=== PATIENT | male | born 1940 | race Caucasian/White ===

== ENCOUNTER 2018-09-03 22:31 | Inpatient (IN) | payer OTHER ==
[~2018-09-03] VITALS: Ht 175.3 cm; Wt 124.4 kg
[2018-09-03 23:01] LABS: BASOPHILS ABSOLUTE AUTO 0.03 K/mm3 (0.00-0.23); BASOPHILS PERCENT AUTO 0 % (0-2); EOSINOPHILS ABSOLUTE AUTO 0.02 K/mm3 (0.00-0.68); EOSINOPHILS PERCENT AUTO 0 % (0-6); Hematocrit 39.8 % (37.0-53.0); Hemoglobin 12.9 g/dL (13.5-17.5); IMMATURE GRAN ABSOLUTE AUTO 0.06 K/mm3 (0.00-0.10); IMMATURE GRAN PERCENT AUTO 1 % (0-1); LYMPHOCYTES ABSOLUTE AUTO 1.07 K/mm3 (0.84-5.20); LYMPHOCYTES PERCENT AUTO 9 % (21-46); MONOCYTES ABSOLUTE AUTO 1.71 K/mm3 (0.16-1.47); MONOCYTES PERCENT AUTO 15 % (4-13); Mean Corpuscular HGB 30.9 pg (26.0-34.0); Mean Corpuscular HGB Conc 32.4 g/dL (31.5-36.5); Mean Corpuscular Volume 95 fL (80-100); Mean Platelet Volume 11.1 fL (9.1-12.4); NEUTROPHILS ABSOLUTE AUTO 8.88 K/mm3 (1.96-9.15); NEUTROPHILS PERCENT AUTO 75 % (41-73); Platelet Count 132 K/mm3 (150-400); RDW Coefficient Variation 13.9 % (11.7-14.2); RDW Standard Deviation 48.6 fL (35.1-46.3); Red Blood Cell Count 4.18 M/mm3 (4.30-5.90); White Blood Cell Count 11.77 K/mm3 (4.00-11.30)
[2018-09-03 23:11] LABS: International Normalized Ratio 1.16; Prothrombin Time Results 11.8 Sec (9.7-11.5)
[2018-09-03 23:19] LABS: Albumin, Blood 3.4 g/dL (3.4-5.0); Albumin/Globulin Ratio 0.9 (0.8-1.8); Bilirubin, Total 0.9 mg/dL (0.1-1.0); Bun/Creatinine Ratio 24.2 (12.0-20.0); Calcium, Blood 8.4 mg/dL (8.5-10.1); Creatinine, Blood 1.28 mg/dL (0.60-1.20); Globulin, Blood 3.7 g/dL (2.2-4.0); Potassium, Blood 4.4 mmol/L (3.5-5.5); Total Protein, Blood 7.1 g/dL (6.4-8.2)
[2018-09-04 01:42] LABS: Creatine Kinase MB 23.6 ng/mL (0.0-3.6); Creatine Kinase MB Index 0.3 (0.0-4.0)
--- NOTE | 2018-09-04 02:48 | NUR ---
SPOKE WITH PT'S SON AND SON'S SPOUSE. BOTH STATED LIVE OUT OF TOWN AND DON'T KNOW MUCH ABOUT PATIENT BUT WILL BRING PT'S MEDICATIONS IN THE AM.
[2018-09-04 03:08] LABS: Bilirubin, Urine Neg (Neg); Blood, Urine 5+ (Neg); Glucose Qualitative, Urine Neg (Neg); Ketones, Urine 1+ (Neg); Leukocyte Esterase, Urine 1+ (Neg); Nitrite, Urine Neg (Neg); Protein, Urine 2+ (Neg); Specific Gravity, Urine 1.015 (1.003-1.022); Urobilinogen, Urine NORM (Normal)
[2018-09-04 03:13] LABS: Appearance, Urine Clear (Clear); Color, Urine Yellow (P-Yellow)
[2018-09-04 03:14] LABS: Squamous Epithelial Cells Not Seen /hpf (Few)
[2018-09-04 03:15] LABS: Amorphous Light (0-Heavy); Bacteria Mod /hpf; Mucus Light (0-Heavy); WBC Cast 0-2 /lpf (0)
[2018-09-04 03:20] LABS: U Amphetamine Screen Not Detected; U Barbituate Screen Not Detected; U Benzodiazapine Screen Not Detected; U Buprenorphine Screen Not Detected; U Cannabinoids Screen Not Detected; U Cocaine Screen Not Detected; U Methadone Screen Not Detected; U Methamphetamine Screen Not Detected; U Opiates Screen DETECTED; U Oxycodone Screen Not Detected; U Phencyclidine Screen Not Detected; U Propoxyphene Screen Not Detected
--- NOTE | 2018-09-04 03:56 | NUR ---
TEMP PT MED WITH TYLENOL FOR TEMP 102.4
--- NOTE | 2018-09-04 05:52 | NUR ---
PT TEMPERATURE CURRENTLY 100.3 POST TYLENOL. PT SLEEPING OFF AND ON AND IS PLEASANT WHEN AWAKENED. VSS. PT FAMILY TO BRING IN PT'S MEDICATION BOTTLES FOR VERIFICATION.
[2018-09-04 06:28] LABS: Anion Gap 7 mmol/L (6-16); Blood Urea Nitrogen 24 mg/dL (8-24); Bun/Creatinine Ratio 22.2 (12.0-20.0); CO2, Blood 25 mmol/L (21-32); Calcium, Blood 7.7 mg/dL (8.5-10.1); Chloride, Blood 108 mmol/L (98-108); Creatinine, Blood 1.08 mg/dL (0.60-1.20); Glomerular Filtration Rate >60 (60-); Glucose, Blood 146 mg/dL (70-99); Potassium, Blood 3.8 mmol/L (3.5-5.5); Sodium, Blood 140 mmol/L (136-145)
--- NOTE | 2018-09-04 08:57 | NUR ---
0700: CARE ASSUMED, ASSESSMENT COMPLETED. PT A&OX4, SITTING UP IN BED, C/O SOB. LS DIMINISHED IN BASES AND [place], RUL AND RML WITH EXPIRATORY WHEEZES, LS ARE TIGHT. PT REPOSITIONED IN BED, LOOSE COUGH NOTED, PT DENIES PHLEGM PRODUCTION. NS INFUSING AT 200ML/HR PER ORDERS, SPO2 94% 1L/NC, PT REMAINS FEBRILE AT 101.2 DEGREES. 0800: MEDICATIONS TOLERATED WELL, PT SITTING UP IN BED SIPPING JUICE. LS HAVE NOT CLEARED WITH COUGHING/REPOSITIONING, RT EVAL ORDERED. 0815: RT AT BEDSIDE TO ADMINISTER NEB TX. 0840: RT REMAINS AT BEDSIDE, PT'S RR 40, SPO2 93%, O2 INCREASED TO 3L/NC. DR. MARIE AT BEDSIDE FOR EVAL. 0900: SOLUMEDROL ADMINISTERED PER ORDERS, LABS DRAWN, FABRIC PATTERN GRADER AT BEDSIDE.
[2018-09-04 10:12] LABS: BASOPHILS ABSOLUTE AUTO 0.03 K/mm3 (0.00-0.23); BASOPHILS PERCENT AUTO 0 % (0-2); EOSINOPHILS ABSOLUTE AUTO 0.01 K/mm3 (0.00-0.68); EOSINOPHILS PERCENT AUTO 0 % (0-6); Hematocrit 35.7 % (37.0-53.0); Hemoglobin 11.4 g/dL (13.5-17.5); IMMATURE GRAN ABSOLUTE AUTO 0.05 K/mm3 (0.00-0.10); IMMATURE GRAN PERCENT AUTO 0 % (0-1); LYMPHOCYTES ABSOLUTE AUTO 0.72 K/mm3 (0.84-5.20); LYMPHOCYTES PERCENT AUTO 6 % (21-46); MONOCYTES ABSOLUTE AUTO 1.51 K/mm3 (0.16-1.47); MONOCYTES PERCENT AUTO 12 % (4-13); Mean Corpuscular HGB 30.7 pg (26.0-34.0); Mean Corpuscular HGB Conc 31.9 g/dL (31.5-36.5); Mean Corpuscular Volume 96 fL (80-100); Mean Platelet Volume 11.1 fL (9.1-12.4); NEUTROPHILS ABSOLUTE AUTO 10.66 K/mm3 (1.96-9.15); NEUTROPHILS PERCENT AUTO 82 % (41-73); Platelet Count 105 K/mm3 (150-400); RDW Standard Deviation 49.5 fL (35.1-46.3); Red Blood Cell Count 3.71 M/mm3 (4.30-5.90); White Blood Cell Count 12.98 K/mm3 (4.00-11.30)
--- NOTE | 2018-09-04 11:35 | NUR ---
Echocardiogram completed.
[2018-09-04] MEDS ORDERED: Norco 10-325 T1 EACH PO (11:41)
[2018-09-04] MEDS ORDERED: TRAM50 PO (11:42)
[2018-09-04] MEDS ORDERED: METFORMIN HCL1000 MG PO (11:42)
[2018-09-04] MEDS ORDERED: DOXA4 PO (11:42)
[2018-09-04] MEDS ORDERED: AMLO10 PO (11:43)
[2018-09-04] MEDS ORDERED: ZESTRIL40 MG PO (11:43)
[2018-09-04] MEDS ORDERED: ASPI325EC PO (11:44)
[2018-09-04] MEDS ORDERED: CARV25 PO (11:44)
[2018-09-04] MEDS ORDERED: HYDCHL25 PO (11:45)
[2018-09-04] MEDS ORDERED: ATOR80 PO (11:45)
[2018-09-04 12:05] LABS: Base Excess Venous -1.5 mmol/L; Bicarbonate Venous 23.2 mmol/L (24.0-30.0); PCO2 Venous 40.3 mmHg (38-42); PO2 Venous 92.6 mmHg (38-42); pH Blood Venous 7.38 (7.34-7.37)
--- NOTE | 2018-09-04 12:09 | NUR ---
1000: PT SITTING UP IN BED, CONTINUOUS NEB TX COMPLETED, RR 26/MIN, NO WHEEZING NOTED, SPO2 93% 2L/NC/ PT STATES HE IS FEELING BETTER, COLOR HAS IMPROVED, PT NO LONGER WORKING SO HARD TO BREATHE. PT DENIES NEEDS AT THIS TIME. 1100: PT MEDICATED FOR CBG, FEVER, AND PAIN, TO CT AT THIS TIME. TOLERATED TRANSFER FROM BED TO [place] GURNEY WELL WITH MAX ASSIST. 1200: PT SITTING IN BED, RESPIRATIONS REMAIN EVEN AND UNLABORED, SPO2 98% 2L/NC, RR 22/MIN PT EATING LUNCH AND VISITING WITH FAMILY. NO DISTRESS NOTED AT THIS TIME.
--- NOTE | 2018-09-04 18:15 | NUR ---
1400: PT C/O BLAT LEGS FEELING "TIRED," OFFERED TO REPOSITION LEGS, PT REFUSES, ASKS FOR ICE PACKS. ICE PLACED ON BILAT LOWER LEGS, PT REPOSITIONED, STATES HE IS GOING TO TAKE A NAP. 1600: PT HAS BEEN NAPPING SOUNDLY, VSS, RR 20'S, SPO2 MID 90'S. PT NOW AWAKE WITH FAMILY AT BEDSIDE, AUDIBLE WHEEZES NOTED, PT REPORTS INCREASED SOB. LS WITH WHEEZES IN RUL AND RML, DIMINISHED IN ALL OTHER LOBES, RR 30'S. RT TO ADMINISTER NEB. 1700: LS HAVE CLEARED AFTER NEB TREATMENT, PT DENIES NEEDS AT THIS TIME. 1815: PT ATE 60% OF DINNER WITHOUT ANY NOTED COUGHING OR CHOKING, IS ALERT AND ORIENTED X4, DENIES NEEDS OR C/O AT THIS TIME. VSS, SPO2 97% ON 2L, LS REMAIN CLEAR, PT DENIES SOB OR CHEST PAIN. NS INFUSING AT 150ML/HR PER ORDERS, REPORT TO ONCOMING SHIFT.
--- NOTE | 2018-09-04 19:50 | NUR ---
PT CONTINUES TO SLEEP. VSS. PT RECEIVED BREATHING TX VIA RT THIS HOUR. PT APPEARS COMFORTABLE AND IN NO DISTRESS. NO AUDIBLE WHEEZING NOTED.
--- NOTE | 2018-09-05 00:10 | NUR ---
PT REMAINS AWAKE. REQUESTED TV ON. PT CURRENTLY WATCHING TV. CALL LIGHT WITHIN REACH.
--- NOTE | 2018-09-05 01:45 | NUR ---
0130 THIS RN TO PT BEDSIDE. PT REQUEST TV TO BE TURNED OFF. PT REPOSITIONED SLIGHTLY PER PT. CALL LIGHT WITHIN REACH. LAYAY PT SLEEPING.
[2018-09-05 03:38] LABS: BASOPHILS ABSOLUTE AUTO 0.01 K/mm3 (0.00-0.23); BASOPHILS PERCENT AUTO 0 % (0-2); EOSINOPHILS PERCENT AUTO 0 % (0-6); Hematocrit 34.4 % (37.0-53.0); Hemoglobin 10.9 g/dL (13.5-17.5); IMMATURE GRAN ABSOLUTE AUTO 0.03 K/mm3 (0.00-0.10); IMMATURE GRAN PERCENT AUTO 0 % (0-1); LYMPHOCYTES ABSOLUTE AUTO 0.66 K/mm3 (0.84-5.20); LYMPHOCYTES PERCENT AUTO 7 % (21-46); MONOCYTES ABSOLUTE AUTO 0.52 K/mm3 (0.16-1.47); MONOCYTES PERCENT AUTO 5 % (4-13); Mean Corpuscular HGB 30.6 pg (26.0-34.0); Mean Corpuscular HGB Conc 31.7 g/dL (31.5-36.5); Mean Corpuscular Volume 97 fL (80-100); Mean Platelet Volume 11.4 fL (9.1-12.4); NEUTROPHILS PERCENT AUTO 88 % (41-73); Platelet Count 120 K/mm3 (150-400); RDW Coefficient Variation 13.5 % (11.7-14.2); RDW Standard Deviation 48.7 fL (35.1-46.3); Red Blood Cell Count 3.56 M/mm3 (4.30-5.90); White Blood Cell Count 9.72 K/mm3 (4.00-11.30)
[2018-09-05 03:54] LABS: Anion Gap 5 mmol/L (6-16); Blood Urea Nitrogen 28 mg/dL (8-24); Bun/Creatinine Ratio 27.5 (12.0-20.0); CO2, Blood 25 mmol/L (21-32); Calcium, Blood 7.4 mg/dL (8.5-10.1); Chloride, Blood 110 mmol/L (98-108); Creatinine, Blood 1.02 mg/dL (0.60-1.20); Glomerular Filtration Rate >60 (60-); Glucose, Blood 295 mg/dL (70-99); Potassium, Blood 4.6 mmol/L (3.5-5.5); Sodium, Blood 140 mmol/L (136-145)
--- NOTE | 2018-09-05 06:43 | NUR ---
PT AWAKE, A+O X4 WATCHING TV. CALL LIGHT WITHIN REACH.
--- NOTE | 2018-09-05 10:47 | NUR ---
0745: CARE ASSUMED, PT JUST FINISHED NEB TREATMENT. ASSESSMENT COMPLETED, LS CLEAR, DIM IN BASES. HRR, VSS, PT DENIES PAIN OR C/O AT THIS TIME. PT SITTING UP IN BED, NS 150ML/HR PER ORDERS, FEET ELEVATED. PT ALERT AND ORIENTED X4, PLEASANT AND COOPERATIVE WITH CARE. MARKS PATENT AND DRAINING, URINE CLEAR TODAY. BREAKFAST TRAY GIVEN, PT DENIES OTHER NEEDS AT THIS TIME. RR 24, SPO2 94% ON 2L/NC, RESPIRATIONS EVEN AND UNLABORED. 0900: PT TOLERATED BREAKFAST AND PO MEDICATIONS WELL, STATES HE WOULD LIKE TO CONTINUE SITTING UP, DENIES OTHER NEEDS. 1000: PT REPORTS HE FEELS LIKE HAVING A BM, BEDPAN PLACED. NO RESULTS, CATH AND RAMO CARE PROVIDED. PT REPOSITIONED ONTO LEFT SIDE, STATES HE IS COMFORTABLE. PT BECOMES MODERATELY SOB WITH ACTIVITY, RECOVERS QUICKLY, SPO2 REMAINS 93-94% DURING EXERTION IN BED.
--- NOTE | 2018-09-05 12:14 | NUR ---
1200: PT UP AT BEDSIDE WITH PT/OT, TIRES AND BECOMES SOB EASILY. PT ASSISTED BACK TO BED, REPOSITIONED, OXYGEN INCREASED TO 4L MOMENTARILY FOR COMFORT. WITH REST, PT CALMS AND SOB DISSPIATES. OXYGEN BACK TO 2L/NC. PT NOW SITTING UP IN BED EATING LUNCH, FAMILY AT BEDSIDE. PT TALKING IN FULL SENTENCES WITHOUT DIFFICULTY.
--- NOTE | 2018-09-05 16:17 | NUR ---
1420: PT SITTING UP IN BED WATCHING FOOTBALL, REPORTS HEADACHE AND BACK PAIN 6/10, MEDICATED WITH PERCOCET PER ORDERS. PT DENIES OTHER NEEDS. 1445: SMALL BM IN BEDPAN, PT REPOSITIONED. 1600: BEDBATH AND CATH CARE COMPLETED, PT REPOSITIONED IN BED, DENIES C/O. DRESSING TO LEFT AC IV LOOSE, CHANGED, IV SITE WITHOUT S/SX INFECTION. RT AT BEDSIDE TO [facility] JOSE G NIXON.
--- NOTE | 2018-09-05 18:43 | NUR ---
1800: PT SAT UP IN BED FOR DINNER, DENES NEEDS OR C/O AT THIS TIME. RESPIRATIONS EVEN AND UNLABORED, RR 24, SPO2 MID 90'S, HR 60'S, BP STABLE. PT DENIES NEEDS AT THIS TIME, IS EATING AND WATCHING TV. DR. MARIE NOTIFIED OF 24 HOUR INTAKE AND OUTPUT. 1845: PT ATE DINNER WITHOUT DIFFICULTY, NS DECREASED TO 50ML/HR PER ORDERS. PT REMAINS SITTING UP IN BED, DENIES NEEDS. VSS, RESPIRATIONS EVEN AND UNLABORED. REPORT TO ONCOMING NURSE.
--- NOTE | 2018-09-05 19:15 | NUR ---
ASSUMED PT CARE PT SITTING UPRIGHT IN BED SLEEPING WITH CALL LIGHT AND BEDSIDE TABLE IN REACH. NS INFUSING AT 50MLS/HR. OXYGEN AT 2L VIA NC WITH OXYGEN SATURATIONS >95%. PT APPEARS COMFORTABLE AT THIS TIME.
[2018-09-06 03:49] LABS: BASOPHILS ABSOLUTE AUTO 0.01 K/mm3 (0.00-0.23); BASOPHILS PERCENT AUTO 0 % (0-2); EOSINOPHILS PERCENT AUTO 0 % (0-6); Hematocrit 35.3 % (37.0-53.0); Hemoglobin 11.1 g/dL (13.5-17.5); IMMATURE GRAN ABSOLUTE AUTO 0.12 K/mm3 (0.00-0.10); IMMATURE GRAN PERCENT AUTO 1 % (0-1); LYMPHOCYTES ABSOLUTE AUTO 0.67 K/mm3 (0.84-5.20); LYMPHOCYTES PERCENT AUTO 6 % (21-46); MONOCYTES ABSOLUTE AUTO 0.63 K/mm3 (0.16-1.47); MONOCYTES PERCENT AUTO 6 % (4-13); Mean Corpuscular HGB 30.2 pg (26.0-34.0); Mean Corpuscular HGB Conc 31.4 g/dL (31.5-36.5); Mean Corpuscular Volume 96 fL (80-100); Mean Platelet Volume 11.6 fL (9.1-12.4); NEUTROPHILS ABSOLUTE AUTO 9.84 K/mm3 (1.96-9.15); NEUTROPHILS PERCENT AUTO 87 % (41-73); Platelet Count 152 K/mm3 (150-400); RDW Coefficient Variation 13.7 % (11.7-14.2); RDW Standard Deviation 48.4 fL (35.1-46.3); Red Blood Cell Count 3.68 M/mm3 (4.30-5.90); White Blood Cell Count 11.27 K/mm3 (4.00-11.30)
[2018-09-06 04:12] LABS: Anion Gap 6 mmol/L (6-16); Blood Urea Nitrogen 29 mg/dL (8-24); Bun/Creatinine Ratio 27.6 (12.0-20.0); CO2, Blood 25 mmol/L (21-32); Calcium, Blood 7.6 mg/dL (8.5-10.1); Chloride, Blood 111 mmol/L (98-108); Creatinine, Blood 1.05 mg/dL (0.60-1.20); Glomerular Filtration Rate >60 (60-); Glucose, Blood 357 mg/dL (70-99); Potassium, Blood 4.9 mmol/L (3.5-5.5); Sodium, Blood 142 mmol/L (136-145)
[2018-09-06 04:24] LABS: CPK Creatine Kinase 1316 U/L (39-308)
--- NOTE | 2018-09-06 05:12 | NUR ---
END OF SHIFT SUMMARY PT HAS BEEN PLEASANT AND COOPERATIVE WITH CARE T/O SHIFT. C/O MODERATE BACK PAIN AND REQUESTED PRN PERCOCET, WHICH APPEARED EFFECTIVE PT FELL ASLEEP AT 90 DEGREES. PT OFFERED REPOSITIONING FREQUENTLY, BUT DECLINED AND STATED HE WAS COMFORTABLE D/T EASIER WORK OF BREATHING SITTING UPRIGHT. PT'S LUNGS HAVE BEEN CLEAR TO BILATERAL UPPER LOBES WITH COARSE RHONCHI NOTED AT TIMES THAT IS CLEARED WITH COUGH; DIMINISHED TO BILATERAL LOWER LOBES. UNABLE TO COUGH UP ANY SPUTUM, BUT DOES STATE THAT IT IS A PRODUCTIVE COUGH. SBP ELEVATED >160 TOWARD END OF SHIFT; PT ALSO SOUNDED WHEEZY AT THAT TIME AND ASKED IF HE WAS ANXIOUS OR WAS SOB; PT DENIED BOTH, BUT STATED HE WAS A 6/10 PAIN AND REQUESTED PRN PERCOCET. RT ADMINISTERED PRN NEB TX D/T AUDIBLE WHEEZING. PT HAS REMAINED ON 2L O2 VIA NC WITH OXYGEN SATURATIONS MAINTAINING >91%. PT APPEARS COMFORTABLE AT THIS TIME WITH NO SIGNS OF ACUTE DISTRESS NOTED.
--- NOTE | 2018-09-06 05:43 | NUR ---
CXR PT TAKEN TO XRAY WITH TECH AND TELE BOX
--- NOTE | 2018-09-06 07:30 | NUR ---
ASSUMED CARE ASSUMED CARE OF PATIENT. PATIENT AWAKE AND ALERT. CURRENTLY RECEIVING A BREATHING TREATMENT. PATIENT [place]. PATIENT VERBALIZING FRUSTRATION THAT HE IS HAVING TROUBLES WITH GETTING AROUND AND REMEMBERING STUFF. PATIENT DISCUSSED THAT HE WAS FRUSTRATED THAT HE WAS TOO WEAK TO GET HIMSELF UP OFF THE FLOOR WHEN HE FELL AT HOME. PATIENT EASILY SOB WITH ANY EXCERSION INCLUDING WASHING HIS FACE. PATIENT STATES THAT HE IS BREATHING MUCH BETTER TODAY COMPARED TO HOW HE HAS BEEN AT HOME. STATES THAT WHEN HE MOVED HERE, HE HAD A CPAP MACHINE BUT DID NOT BRING IT WITH HIM. PLAN TO ENCOURAGE MOBILIZING. WILL CONTINUE TO MONITOR RESPITORY STATUS AND TITRATE FIO2 ABLE. PATIENT DOES NOT USE O2 AT HOME. WILL NOTIFY PHYSICIANS OF ANY CHANGES.
--- NOTE | 2018-09-06 14:31 | NUR ---
PATIENT WORKED WITH OT. PATIENT ABLE TO REPOSITION AND STAND AT BEDSIDE. PATIENT EASILY SOB WITH ANY EXCERTION. CONTINUE TO REINFORCE WITH PATIENT THE IMPORTANCE OF PURSED LIP BREATHING. FAMILY AT BEDSIDE
--- NOTE | 2018-09-06 18:35 | NUR ---
SUMMARY PATIENT CONTINUES TO BE EASILY SOB WITH EXCERTION. UP TO COMMODE WITH MINIMAL ASSISTANCE AND VERBAL COACHING. PATIENT WORKED WITH PT AND AMBULATED SHORT DISTANCE IN ROOM. CONTINUE TO REMIND PATIENT TO DO PURSED LIP BREATHING. PATIENT BATHED AND SHAVED EARLIER. SKIN CARE DONE AFTER BATH, REMOVED SCALY SKIN FROM FEET AND LEGS. WILL GIVE REPORT TO ONCOMING SHIFT WHEN AVAILABLE. MARKS DRAINING YELLOW URINE WITH GOOD RESPONSE TO LASIX.
[2018-09-07 03:43] LABS: BASOPHILS ABSOLUTE AUTO 0.01 K/mm3 (0.00-0.23); BASOPHILS PERCENT AUTO 0 % (0-2); EOSINOPHILS PERCENT AUTO 0 % (0-6); Hemoglobin 11.4 g/dL (13.5-17.5); IMMATURE GRAN ABSOLUTE AUTO 0.11 K/mm3 (0.00-0.10); IMMATURE GRAN PERCENT AUTO 1 % (0-1); LYMPHOCYTES ABSOLUTE AUTO 0.75 K/mm3 (0.84-5.20); LYMPHOCYTES PERCENT AUTO 7 % (21-46); MONOCYTES PERCENT AUTO 7 % (4-13); Mean Corpuscular HGB 30.5 pg (26.0-34.0); Mean Corpuscular HGB Conc 32.6 g/dL (31.5-36.5); Mean Corpuscular Volume 94 fL (80-100); Mean Platelet Volume 11.5 fL (9.1-12.4); NEUTROPHILS ABSOLUTE AUTO 8.87 K/mm3 (1.96-9.15); NEUTROPHILS PERCENT AUTO 85 % (41-73); Platelet Count 167 K/mm3 (150-400); RDW Coefficient Variation 13.5 % (11.7-14.2); RDW Standard Deviation 46.6 fL (35.1-46.3); Red Blood Cell Count 3.74 M/mm3 (4.30-5.90); White Blood Cell Count 10.44 K/mm3 (4.00-11.30)
[2018-09-07 03:58] LABS: Anion Gap 7 mmol/L (6-16); Blood Urea Nitrogen 33 mg/dL (8-24); Bun/Creatinine Ratio 31.7 (12.0-20.0); CO2, Blood 28 mmol/L (21-32); Calcium, Blood 8.1 mg/dL (8.5-10.1); Chloride, Blood 108 mmol/L (98-108); Creatinine, Blood 1.04 mg/dL (0.60-1.20); Glomerular Filtration Rate >60 (60-); Glucose, Blood 284 mg/dL (70-99); Potassium, Blood 4.4 mmol/L (3.5-5.5); Sodium, Blood 143 mmol/L (136-145)
--- NOTE | 2018-09-07 07:45 | NUR ---
AM ASSESSMENT: PT IS ALERT AND ORIENTED X3. [place] WITH NO HEARING AIDS. PLEASANT AND COOPERATIVE WITH CARE. PT ANSWERS SLOWLY BUT APPROPRIATELY. LUNGS DIMINISHED WITH EXPIRATORY WHEEZES HEARD T/O BILATERALLY. SATS >90% ON RA. PT DOES GET DYSPNEIC WITH EXERTION AND NEEDS CONTINUED EDUCATION ON PURSED LIPPED BREATHING. HR REGULAR, SR WITH BBB-60'S RANGE. ABD LARGE/ROUND/NON-TENDER. BT'S ACTIVE X4 QUADS.
--- NOTE | 2018-09-07 07:58 | NUR ---
HS CBG = 457, COVERED W/ 18 UNITS HUMALOG INSULIN, REPORTED TO DR REILLY. REPEAT AT 2330 = 382. DISCUSSED W/ DR HASSAN, ADDITIONAL NON-SCHEDUAL DOSE 15 UNITS HUMALOG GIVEN. 0300 LAB GLUCOSE CON'T REDUCED, 284. COREG 25 MG, CARDURA 4 MG RESTARTED AT HS, SMALL TRANSIENT DECREASE SBP. ADDITIONAL HOME MEDS TO START IN AM.
--- NOTE | 2018-09-07 10:07 | NUR ---
PRINCESS FROM HOME, HEALTH, AND HOSPICE HERE TO SPEAK WITH PT ABOUT DISCHARGE PLANNING. PT DECLINED GOING TO A SNF, HE DOES NOT WANT TO LEAVE HIS HOME ALONE. ONE SON LIVES IN [place] AND THE OTHER IS A PARAP[employer]IC. PRINCESS WILL RETURN WITH [employer] FOR PT TO FILL OUT FOR PT TO RECEIVE HOME HEALTH POST DISCHARGE.
--- NOTE | 2018-09-07 10:12 | NUR ---
DR BROWN HERE TO ASSESS PT. SEE NEW ORDERS.
--- NOTE | 2018-09-07 11:30 | NUR ---
D/C'D PT'S MARKS CATH. URINAL AND BSC PLACED AT BEDSIDE. CALL LIGHT WITHIN REACH SO PT CAN CALL FOR ASSIST PRN.
--- NOTE | 2018-09-07 11:48 | NUR ---
CALLED IN RX'S AND LEFT MESSAGE AT PT'S PHARMACY AT [facility] IN [place]. DISCUSSED HOME 02 EVALUATION WITH RT RICHY. SHE WILL DO EVALUATION WHEN AVAILABLE.
--- NOTE | 2018-09-07 12:56 | NUR ---
RICHY, RT HERE TO DO HOME 02 EVALUATION. SEE RT NOTES FOR EVAL.
--- NOTE | 2018-09-07 13:06 | NUR ---
CALLED PT'S (QUENTIN) TO ASK IF THERE WAS ANY FAMILY THAT COULD TRANSPORT THE PT HOME PRIOR TO SETTING UP TRANSPORT. QUENTIN IS TO CALL THIS RN BACK ONCE HER DAUGHTER GETS THERE FROM [employer].
--- NOTE | 2018-09-07 13:58 | NUR ---
SPOKE WITH PT'S SON (TIA) WHOM IS CONCERNED ABOUT THE PT BEING RELEASED TODAY, THEY ARE CONCERNED ABOUT HIM BEING ABLE TO CARE FOR HIMSELF AND HIS AT HOME. EDUCATED FAMILY THAT HOME HEALTH RN IS ORDERED, BUT WON'T BE IN TO ASSESS PT UNTIL TOMORROW. ALSO, DISCUSSED HOME ASSISTIVE DEVICES THAT WERE ORDERED WELL. SON TO TALK WITH PT ABOUT HIS CONCERNS ONCE PT IS DONE ON THE BSC.
[2018-09-07] MEDS ORDERED: ALBU2.5V5 INH (14:03)
[2018-09-07] MEDS ORDERED: AMOCLA500 PO (14:04)
[2018-09-07] MEDS ORDERED: DOCU100 PO (14:11)
[2018-09-07] MEDS ORDERED: INSULANPEN SC (14:13)
[2018-09-07] MEDS ORDERED: Humalog Mi100 UNIT/4 SC (14:13)
[2018-09-07] MEDS ORDERED: PRED20 PO (14:15)
[2018-09-07] MEDS ORDERED: MIRALAX17 GM PO (14:16)
--- NOTE | 2018-09-07 14:35 | NUR ---
SPOKE WITH TIA AGAIN AND HE VOICED CONCERNS OF THE PT BEING RELEASED HOME TODAY. CALLED DR RITTER WHOM REPORTS WE CAN KEEP PT ONE MORE NIGHT AND WILL DISCHARGE HIM HOME TOMORROW.
--- NOTE | 2018-09-07 16:01 | NUR ---
PT UPDATE: PT ADAMENT THAT HE BE RELEASED FROM THE HOSPITAL AND FEELS HE "IS SAFE" TO GO HOME TODAY. REPORTS HE FEELS LIKE HE CAN GET UP HIS THREE STEPS LEADING INTO HIS HOME. PT'S HERE AND TRIED TO CONVINCE PT TO STAY ONE MORE NIGHT IN THE HOSPITAL UNTIL HOME HEALTH RN CAN MAKE IT OUT TOMORROW AND THERE THE FACILITIES ARE OPEN FOR HIM TO GET HIS MEDICAL EQUIPMENT NEEDED. PRINCESS HERE TO GIVE THE PT AND PT'S /FAMILY RESOURCES (SEE HER NOTE). \\ CALLED AND SPOKE WITH DR RITTER WHOM IS CLEARING PT FOR DISCHARGE.
[2018-09-07] MEDS ORDERED: Percocet 5-3251 EACH PO ×2 (16:21→16:22)
--- NOTE | 2018-09-07 17:44 | NUR ---
DISCHARGE NOTE: FAMILY REMAINS CONCERNED ABOUT PT BEING ABLE TO GET UP STEPS AT HOME. PT INSISTS HE WILL BE GOING HOME AND IF HIS FAMILY DOES NOT PROVIDE A RIDE HOME, THAT HE WILL FIND HIS OWN RIDE HOME. PT TAKEN TO THE PHYSICAL THERAPY STAIRS AND PT WAS ABLE TO WALK UP AND DOWN THE THERAPY STEPS ON BOTH SIDES. FAMILY ADVISED TO CALL THE FIRE DEPT IF HE IS UNABLE TO GET UP THE STEPS. ALSO RECOMMENDED THEY CONSULT WITH [employer] TO USES THEIR STAIR CHAIR, HOWEVER, PT DECLINED R/T THE COST. PT'S QUENTIN GIVEN WRITTEN AND VERBAL DISCHARGE INSTRUCTIONS F/Raheel, NEW MEDICATIONS . ALL MEDICATIONS CALLED INTO [facility], EXCEPT SCRIPT FOR OXYCODONE AND SCRIPT FOR FWW, W/C, BSC GIVEN TO PT. PT ASSISTED WITH DRESSING AND THIS RN ESCORTED PT BY W/C OUT TO HIS CAR. ALL PERSONAL BELONGINGS SENT HOME WITH PT.
== END 2018-09-07 16:47 | disposition home or self-care (01) | DRG 871 ==
LOC: ER 22:31 → ICUW 22:32 → ER 09-04 02:22 → ICUE 09-04 02:25
PROVIDERS: Emergency Medicine; Internal Medicine; ADMIT Hospitalist
DX: A41.9 Sepsis, unspecified organism (principal); J96.01 Acute respiratory failure with hypoxia; N39.0 Urinary tract infection, site not specified; M62.82 Rhabdomyolysis; N17.9 Acute kidney failure, unspecified; Z68.41 Body mass index [BMI] 40.0-44.9, adult; E11.9 Type 2 diabetes mellitus without complications; Z77.22 Contact with and (suspected) exposure to environmental tobacco smoke (acute) (chronic); E66.01 Morbid (severe) obesity due to excess calories; I25.10 Atherosclerotic heart disease of native coronary artery without angina pectoris; E86.0 Dehydration
CPT/HCPCS: 36415; 51702; 70450; 71046; 72131; 80048; 80053; 81001; 82550; 82553; 82803; 82947; 83605; 83880; 84145; 84484; 85025; 85379; 85610; 87040; 87077; 87086; 87186; 93005; 93010; 93306; 94640; 94644; 94761; 96360; 96361; 96372; 97110; 97116; 97163; 97167; 97530; 99285-25; G0378; G8978; G8979; G8987; G8988; J0696; J1644; J1940; J2930; J3010; J7030

== ENCOUNTER 2018-09-10 15:16 | Emergency (ER) | payer OTHER ==
[~2018-09-10] VITALS: Ht 175.3 cm; Wt 125.2 kg
[~2018-09-10 15:16] MED LIST: ALBU2.5V5 INH; AMLO10 PO; AMOCLA500 PO; ASPI325EC PO; ATOR80 PO; CARV25 PO; DOCU100 PO; DOXA4 PO; HYDCHL25 PO; Humalog Mi100 UNIT/4 SC; INSULANPEN SC; METFORMIN HCL1000 MG PO; MIRALAX17 GM PO; Norco 10-325 T1 EACH PO; PRED20 PO; Percocet 5-3251 EACH PO; TRAM50 PO; ZESTRIL40 MG PO
[2018-09-10 16:29] LABS: BASOPHILS ABSOLUTE AUTO 0.02 K/mm3 (0.00-0.23); BASOPHILS PERCENT AUTO 0 % (0-2); EOSINOPHILS ABSOLUTE AUTO 0.05 K/mm3 (0.00-0.68); EOSINOPHILS PERCENT AUTO 0 % (0-6); Hematocrit 39.4 % (37.0-53.0); Hemoglobin 12.6 g/dL (13.5-17.5); IMMATURE GRAN ABSOLUTE AUTO 0.16 K/mm3 (0.00-0.10); IMMATURE GRAN PERCENT AUTO 1 % (0-1); LYMPHOCYTES ABSOLUTE AUTO 0.93 K/mm3 (0.84-5.20); LYMPHOCYTES PERCENT AUTO 7 % (21-46); MONOCYTES ABSOLUTE AUTO 0.67 K/mm3 (0.16-1.47); MONOCYTES PERCENT AUTO 5 % (4-13); Mean Corpuscular HGB 30.6 pg (26.0-34.0); Mean Corpuscular Volume 96 fL (80-100); Mean Platelet Volume 11.6 fL (9.1-12.4); NEUTROPHILS ABSOLUTE AUTO 11.19 K/mm3 (1.96-9.15); NEUTROPHILS PERCENT AUTO 86 % (41-73); Platelet Count 171 K/mm3 (150-400); RDW Coefficient Variation 13.9 % (11.7-14.2); RDW Standard Deviation 48.8 fL (35.1-46.3); Red Blood Cell Count 4.12 M/mm3 (4.30-5.90); White Blood Cell Count 13.02 K/mm3 (4.00-11.30)
[2018-09-10 16:45] LABS: Magnesium, Blood 1.9 mg/dL (1.6-2.4)
[2018-09-10 16:46] LABS: Alanine Aminotransfer (ALT/SGP 59 U/L (12-78); Albumin, Blood 2.6 g/dL (3.4-5.0); Albumin/Globulin Ratio 0.7 (0.8-1.8); Alk Phos 60 U/L (50-136); Anion Gap 6 mmol/L (6-16); Aspartate Aminotrans (AST/SGOT 23 U/L (12-37); Blood Urea Nitrogen 23 mg/dL (8-24); Bun/Creatinine Ratio 20.5 (12.0-20.0); CO2, Blood 31 mmol/L (21-32); Calcium, Blood 8.9 mg/dL (8.5-10.1); Chloride, Blood 105 mmol/L (98-108); Creatinine, Blood 1.12 mg/dL (0.60-1.20); Globulin, Blood 3.9 g/dL (2.2-4.0); Glomerular Filtration Rate >60 (60-); Glucose, Blood 65 mg/dL (70-99); Potassium, Blood 4.2 mmol/L (3.5-5.5); Sodium, Blood 142 mmol/L (136-145); Total Protein, Blood 6.5 g/dL (6.4-8.2); Troponin I <0.015 ng/mL (0.000-0.040)
== END 2018-09-10 19:25 | disposition home or self-care (01) ==
LOC: ER 15:16
PROVIDERS: Emergency Medicine
DX: R42 Dizziness and giddiness (principal); R29.6 Repeated falls; E11.9 Type 2 diabetes mellitus without complications; I10 Essential (primary) hypertension; E78.5 Hyperlipidemia, unspecified; E66.01 Morbid (severe) obesity due to excess calories; Z95.1 Presence of aortocoronary bypass graft; Z87.891 Personal history of nicotine dependence
CPT/HCPCS: 36415; 80053; 82550; 82947; 83735; 84484; 85025; 93005; 93010; 96360; 99284-25; J7030

== ENCOUNTER 2018-12-24 10:34 | Emergency (ER) | payer OTHER ==
[~2018-12-24] VITALS: Ht 175.3 cm; Wt 109.8 kg
[2018-12-24 11:23] LABS: BASOPHILS ABSOLUTE AUTO 0.05 K/mm3 (0.00-0.23); BASOPHILS PERCENT AUTO 0 % (0-2); EOSINOPHILS ABSOLUTE AUTO 0.15 K/mm3 (0.00-0.68); EOSINOPHILS PERCENT AUTO 1 % (0-6); Hematocrit 35.7 % (37.0-53.0); Hemoglobin 10.9 g/dL (13.5-17.5); IMMATURE GRAN ABSOLUTE AUTO 0.08 K/mm3 (0.00-0.10); IMMATURE GRAN PERCENT AUTO 1 % (0-1); LYMPHOCYTES ABSOLUTE AUTO 1.22 K/mm3 (0.84-5.20); LYMPHOCYTES PERCENT AUTO 9 % (21-46); MONOCYTES ABSOLUTE AUTO 0.99 K/mm3 (0.16-1.47); MONOCYTES PERCENT AUTO 8 % (4-13); Mean Corpuscular HGB 27.9 pg (26.0-34.0); Mean Corpuscular HGB Conc 30.5 g/dL (31.5-36.5); Mean Platelet Volume 11.3 fL (9.1-12.4); NEUTROPHILS ABSOLUTE AUTO 10.45 K/mm3 (1.96-9.15); NEUTROPHILS PERCENT AUTO 81 % (41-73); Platelet Count 224 K/mm3 (150-400); RDW Coefficient Variation 15.2 % (11.7-14.2); RDW Standard Deviation 50.4 fL (35.1-46.3); Red Blood Cell Count 3.91 M/mm3 (4.30-5.90); White Blood Cell Count 12.94 K/mm3 (4.00-11.30)
[2018-12-24 11:25] LABS: Mean Corpuscular Volume 91 fL (80-100)
[2018-12-24 11:37] LABS: Albumin, Blood 2.6 g/dL (3.4-5.0); Albumin/Globulin Ratio 0.6 (0.8-1.8); Bilirubin, Total 0.4 mg/dL (0.1-1.0); Bun/Creatinine Ratio 23.9 (12.0-20.0); Calcium, Blood 8.7 mg/dL (8.5-10.1); Creatinine, Blood 1.63 mg/dL (0.60-1.20); Globulin, Blood 4.1 g/dL (2.2-4.0); Potassium, Blood 5.3 mmol/L (3.5-5.5); Total Protein, Blood 6.7 g/dL (6.4-8.2)
[2018-12-24 14:14] LABS: Adenovirus F 40/41 Not Detected (NOT DETECT); Astrovirus Not Detected (NOT DETECT); Campylobacter Sp Not Detected (NOT DETECT); Cryptosporidium Not Detected (NOT DETECT); Cyclospora Cayetanensis Not Detected (NOT DETECT); E. Coli O157 Not Detected (NOT DETECT); Entamoeba Histolytica Not Detected (NOT DETECT); Enteroaggregative E. coli-EAEC Not Detected (NOT DETECT); Enteropathogenic E. coli-EPEC Not Detected (NOT DETECT); Enterotoxigenic E. coli-ETEC Not Detected (NOT DETECT); Giardia Lamblia Not Detected (NOT DETECT); Norovirus GI/GII Not Detected (NOT DETECT); Plesiomonas Shigelloides Not Detected (NOT DETECT); Rotavirus A Not Detected (NOT DETECT); Salmonella Sp Not Detected (NOT DETECT); Sapovirus Not Detected (NOT DETECT); Shiga Toxin-prod E. coli-STEC Not Detected (NOT DETECT); Shigella/Enteroin E. coli-EIEC Not Detected (NOT DETECT); Vibrio Cholerae Not Detected (NOT DETECT); Vibrio Sp Not Detected (NOT DETECT); Yersinia Enterocolitica Not Detected (NOT DETECT)
[2018-12-24] MEDS ORDERED: VANCOCIN HCL125 MG PO (14:18)
== END 2018-12-24 14:40 | disposition home or self-care (01) ==
LOC: ER 10:34
PROVIDERS: Emergency Medicine
DX: A04.72 Enterocolitis due to Clostridium difficile, not specified as recurrent (principal); Z79.84 Long term (current) use of oral hypoglycemic drugs; Z79.899 Other long term (current) drug therapy; Z79.82 Long term (current) use of aspirin; Z79.52 Long term (current) use of systemic steroids; I10 Essential (primary) hypertension; E11.9 Type 2 diabetes mellitus without complications
CPT/HCPCS: 80053; 83690; 85025; 87324; 87507; 93005; 93010; 96360; 99284-25; J7030

== ENCOUNTER → 2019-01-07 | Outpatient (CLI) | payer OTHER ==
[~2019-01-07] MED LIST changes: +VANCOCIN HCL125 MG PO
== END | disposition home or self-care (01) ==
LOC: LAB 18:36 → LAB SHORT 18:36
DX: N39.0 Urinary tract infection, site not specified (principal)
CPT/HCPCS: 87086

== ENCOUNTER → 2019-01-13 | Outpatient (CLI) | payer OTHER ==
[2019-01-13 18:06] LABS: BASOPHILS ABSOLUTE AUTO 0.05 K/mm3 (0.00-0.23); BASOPHILS PERCENT AUTO 1 % (0-2); EOSINOPHILS ABSOLUTE AUTO 0.12 K/mm3 (0.00-0.68); EOSINOPHILS PERCENT AUTO 1 % (0-6); Hematocrit 36.4 % (37.0-53.0); Hemoglobin 11.2 g/dL (13.5-17.5); IMMATURE GRAN ABSOLUTE AUTO 0.03 K/mm3 (0.00-0.10); IMMATURE GRAN PERCENT AUTO 0 % (0-1); LYMPHOCYTES ABSOLUTE AUTO 1.33 K/mm3 (0.84-5.20); LYMPHOCYTES PERCENT AUTO 15 % (21-46); MONOCYTES ABSOLUTE AUTO 0.99 K/mm3 (0.16-1.47); MONOCYTES PERCENT AUTO 11 % (4-13); Mean Corpuscular HGB 27.7 pg (26.0-34.0); Mean Corpuscular HGB Conc 30.8 g/dL (31.5-36.5); Mean Corpuscular Volume 90 fL (80-100); Mean Platelet Volume 11.5 fL (9.1-12.4); NEUTROPHILS ABSOLUTE AUTO 6.16 K/mm3 (1.96-9.15); NEUTROPHILS PERCENT AUTO 71 % (41-73); Platelet Count 253 K/mm3 (150-400); RDW Coefficient Variation 15.3 % (11.7-14.2); RDW Standard Deviation 50.6 fL (35.1-46.3); Red Blood Cell Count 4.05 M/mm3 (4.30-5.90); White Blood Cell Count 8.68 K/mm3 (4.00-11.30)
[2019-01-13 19:05] LABS: Alanine Aminotransfer (ALT/SGP 15 U/L (12-78); Albumin, Blood 3.1 g/dL (3.4-5.0); Albumin/Globulin Ratio 0.8 (0.8-1.8); Alk Phos 66 U/L (50-136); Anion Gap 5 mmol/L (6-16); Aspartate Aminotrans (AST/SGOT 13 U/L (12-37); Bilirubin, Total 0.7 mg/dL (0.1-1.0); Blood Urea Nitrogen 10 mg/dL (8-24); Bun/Creatinine Ratio 11.4 (12.0-20.0); CO2, Blood 25 mmol/L (21-32); Calcium, Blood 8.7 mg/dL (8.5-10.1); Chloride, Blood 109 mmol/L (98-108); Creatinine, Blood 0.88 mg/dL (0.60-1.20); Globulin, Blood 3.9 g/dL (2.2-4.0); Glomerular Filtration Rate >60 (60-); Glucose, Blood 110 mg/dL (70-99); Potassium, Blood 3.8 mmol/L (3.5-5.5); Sodium, Blood 139 mmol/L (136-145)
== END | disposition home or self-care (01) ==
LOC: LAB 17:47 → LAB SHORT 17:47
PROVIDERS: Nurse Practitioner Family
DX: N39.0 Urinary tract infection, site not specified (principal)
CPT/HCPCS: 80053; 85025; 87086

== ENCOUNTER → 2019-01-17 | Outpatient (CLI) | payer OTHER | END | disposition home or self-care (01) | LOC: LAB 13:10 → LAB SHORT 13:10 | DX: N39.0 Urinary tract infection, site not specified (principal) | CPT/HCPCS: 87077; 87086; 87186 ==

== ENCOUNTER → 2019-01-21 | Outpatient (CLI) | payer OTHER ==
[2019-01-21 21:38] LABS: Campylobacter Sp Not Detected (NOT DETECT)
[2019-01-21 21:39] LABS: Adenovirus F 40/41 Not Detected (NOT DETECT); Astrovirus Not Detected (NOT DETECT); Cryptosporidium Not Detected (NOT DETECT); Cyclospora Cayetanensis Not Detected (NOT DETECT); E. Coli O157 Not Detected (NOT DETECT); Entamoeba Histolytica Not Detected (NOT DETECT); Enteroaggregative E. coli-EAEC Not Detected (NOT DETECT); Enteropathogenic E. coli-EPEC Not Detected (NOT DETECT); Enterotoxigenic E. coli-ETEC Not Detected (NOT DETECT); Giardia Lamblia Not Detected (NOT DETECT); Norovirus GI/GII Not Detected (NOT DETECT); Plesiomonas Shigelloides Not Detected (NOT DETECT); Rotavirus A Not Detected (NOT DETECT); Salmonella Sp Not Detected (NOT DETECT); Sapovirus Not Detected (NOT DETECT); Shiga Toxin-prod E. coli-STEC Not Detected (NOT DETECT); Shigella/Enteroin E. coli-EIEC Not Detected (NOT DETECT); Vibrio Cholerae Not Detected (NOT DETECT); Vibrio Sp Not Detected (NOT DETECT); Yersinia Enterocolitica Not Detected (NOT DETECT)
== END | disposition home or self-care (01) ==
LOC: LAB 17:08 → LAB SHORT 17:08 → LAB FUT 01-21 13:45
PROVIDERS: Nurse Practitioner Family
DX: R19.7 Diarrhea, unspecified (principal)
CPT/HCPCS: 87324; 87507

== ENCOUNTER → 2019-02-11 | Outpatient (CLI) | payer OTHER | END | disposition home or self-care (01) | LOC: LAB SHORT 17:08 → LAB 17:08 | DX: N41.0 Acute prostatitis (principal); D17.71 Benign lipomatous neoplasm of kidney | CPT/HCPCS: 87077; 87086; 87186 ==

== ENCOUNTER → 2019-08-08 | Outpatient (CLI) | payer OTHER ==
[2019-08-08 22:35] LABS: Campylobacter Sp Not Detected (NOT DETECT)
[2019-08-08 22:36] LABS: Adenovirus F 40/41 Not Detected (NOT DETECT); Astrovirus Not Detected (NOT DETECT); Cryptosporidium Not Detected (NOT DETECT); Cyclospora Cayetanensis Not Detected (NOT DETECT); E. Coli O157 Not Detected (NOT DETECT); Entamoeba Histolytica Not Detected (NOT DETECT); Enteroaggregative E. coli-EAEC Not Detected (NOT DETECT); Enteropathogenic E. coli-EPEC Not Detected (NOT DETECT); Enterotoxigenic E. coli-ETEC Not Detected (NOT DETECT); Giardia Lamblia Not Detected (NOT DETECT); Norovirus GI/GII Not Detected (NOT DETECT); Plesiomonas Shigelloides Not Detected (NOT DETECT); Rotavirus A Not Detected (NOT DETECT); Salmonella Sp Not Detected (NOT DETECT); Sapovirus Not Detected (NOT DETECT); Shiga Toxin-prod E. coli-STEC Not Detected (NOT DETECT); Shigella/Enteroin E. coli-EIEC Not Detected (NOT DETECT); Vibrio Cholerae Not Detected (NOT DETECT); Vibrio Sp Not Detected (NOT DETECT); Yersinia Enterocolitica Not Detected (NOT DETECT)
== END | disposition home or self-care (01) ==
LOC: LAB 18:26 → LAB SHORT 18:26 → LAB FUT 05-06 08:10
PROVIDERS: Nurse Practitioner Family
DX: R19.7 Diarrhea, unspecified (principal)
CPT/HCPCS: 0097U

== ENCOUNTER 2024-03-27 07:15 | Observation (INO) | payer OTHER ==
[~2024-03-27] VITALS: Ht 165.1 cm; Wt 118.8 kg
[~2024-03-27 07:15] MED LIST changes: -AMLO10 PO; +AMLO5 PO; +Prinivil10 MG PO; -ZESTRIL40 MG PO
[2024-03-27 08:01] LABS: BASOPHILS ABSOLUTE AUTO 0.04 K/mm3 (0.00-0.23); BASOPHILS PERCENT AUTO 1 % (0-2); EOSINOPHILS ABSOLUTE AUTO 0.26 K/mm3 (0.00-0.68); EOSINOPHILS PERCENT AUTO 4 % (0-6); Hematocrit 41.9 % (37.0-53.0); Hemoglobin 13.5 g/dL (13.5-17.5); IMMATURE GRAN ABSOLUTE AUTO 0.02 K/mm3 (0.00-0.10); IMMATURE GRAN PERCENT AUTO 0 % (0-1); LYMPHOCYTES ABSOLUTE AUTO 1.51 K/mm3 (0.84-5.20); LYMPHOCYTES PERCENT AUTO 23 % (21-46); MONOCYTES ABSOLUTE AUTO 0.67 K/mm3 (0.16-1.47); MONOCYTES PERCENT AUTO 10 % (4-13); Mean Corpuscular HGB 31.6 pg (26.0-34.0); Mean Corpuscular HGB Conc 32.2 g/dL (31.5-36.5); Mean Corpuscular Volume 98 fL (80-100); Mean Platelet Volume 11.5 fL (9.1-12.4); NEUTROPHILS ABSOLUTE AUTO 4.15 K/mm3 (1.96-9.15); NEUTROPHILS PERCENT AUTO 62 % (41-73); Platelet Count 157 K/mm3 (150-400); RDW Coefficient Variation 14.4 % (11.7-14.2); RDW Standard Deviation 51.6 fL (35.1-46.3); Red Blood Cell Count 4.27 M/mm3 (4.30-5.90); White Blood Cell Count 6.65 K/mm3 (4.00-11.30)
[2024-03-27 08:22] LABS: Albumin, Blood 3.8 g/dL (3.4-5.0); Albumin/Globulin Ratio 1.1 (0.8-1.8); Bilirubin, Total 0.6 mg/dL (0.1-1.0); Bun/Creatinine Ratio 17.2 (12.0-20.0); Calcium, Blood 8.9 mg/dL (8.5-10.1); Creatinine, Blood 1.22 mg/dL (0.60-1.20); Globulin, Blood 3.6 g/dL (2.2-4.0); Potassium, Blood 4.8 mmol/L (3.5-5.5); Total Protein, Blood 7.4 g/dL (6.4-8.2)
[2024-03-27] MEDS ORDERED: Ipratropium/Albuterol SulF 2.5-0.5MG/3 ML Amp INH ONE (08:30)
[2024-03-27] MEDS ORDERED: Aspirin 325 MG Tab PO ONE (09:20)
[2024-03-27 13:26] VITALS: BP 177/57
--- NOTE | 2024-03-27 13:30 | NUR ---
ARRIVAL TO [facility] PT ARRIVED TO [facility] AT APPROXIMATELY 1320. PT SLID OVER FROM ER [facility] TO HOSPITAL BED BY 3 CLINICAL STAFF MEMBERS. PT A&Ox4, CALLS AND COMMUNICATES NEEDS APPROPRIATELY. BP ELEVATE, NOTIFIED, ORDERS PLACED. HR 50-60's, DENIES CP/PRESSURE. SpO2> 92% RA, DENIES SOB. PHOTOS OF EXCORIATION AND BRUISING IN CHART. BEDBATH DONE UPON ARRIVAL. ORIENTED TO CALL LIGHT/UNIT. BED IN LOWEST POSITION, CALL LIGHT IN REACH.
[2024-03-27] MEDS ORDERED: Atorvastatin 40 MG Tab PO SCH (13:50)
[2024-03-27] MEDS ORDERED: Aspirin 81 MG Chew PO SCH (13:50)
[2024-03-27] MEDS ORDERED: NS 1,000 ML IV SCH (14:15)
[2024-03-27] MEDS ORDERED: Ondansetron 4 MG TAB PO PRN (14:30)
[2024-03-27 15:24] LABS: Source, Urine Clean Catch
[2024-03-27 15:26] LABS: Appearance, Urine Hazy (Clear); Bilirubin, Urine Neg (Neg); Blood, Urine 2+ (Neg); Color, Urine Yellow (P-Yellow); Glucose Qualitative, Urine Neg (Neg); Ketones, Urine Neg (Neg); Leukocyte Esterase, Urine 3+ (Neg); Nitrite, Urine Neg (Neg); Protein, Urine 1+ (Neg); Urobilinogen, Urine NORM (Normal)
[2024-03-27 15:28] VITALS: BP 165/68
[2024-03-27 15:34] LABS: Bacteria Few /hpf; White Blood Cells, Urine 25-50 /hpf (0-5)
[2024-03-27 15:35] LABS: Squamous Epithelial Cells Few /hpf (Few)
[2024-03-27] MEDS ORDERED: HydrALAZINE HCl 20 MG / ML 1ML Vial IV PRN (15:40)
[2024-03-27] MEDS ORDERED: Acetaminophen325 M1 PO (16:56)
[2024-03-27] MEDS ORDERED: BISA10S PR (17:03)
[2024-03-27] MEDS ORDERED: ALBU90OI INH (17:12)
[2024-03-27] MEDS ORDERED: FINA5 PO (17:15)
[2024-03-27] MEDS ORDERED: COLCHICINE0.6 MG PO (17:15)
[2024-03-27] MEDS ORDERED: Prozac20 MG PO (17:16)
[2024-03-27] MEDS ORDERED: GABA100 PO (17:17)
[2024-03-27] MEDS ORDERED: Norco 5-325 Ta1 EACH (17:19)
[2024-03-27] MEDS ORDERED: TRELEGY ELLIPT1 EACH INH (17:21)
[2024-03-27] MEDS ORDERED: POTA10T PO (17:22)
[2024-03-27] MEDS ORDERED: SOAANZ20 M1 (17:22)
[2024-03-27] MEDS ORDERED: NITR.4SL SL (17:23)
[2024-03-27] MEDS ORDERED: Loratadine10 MG PO (17:24)
[2024-03-27] MEDS ORDERED: DULCOLAX400 MG/5 M PO (17:24)
[2024-03-27] MEDS ORDERED: LOPE2C PO (17:25)
[2024-03-27] MEDS ORDERED: IPRAT-ALBUT 0.5-3 ML INH (17:28)
[2024-03-27] MEDS ORDERED: NOVOLOG FL100 UNIT/3 SC (17:31)
[2024-03-27] MEDS ORDERED: ALUM-MAG HYDROX30 M1 PO (17:37)
--- NOTE | 2024-03-27 17:46 | NUR ---
SHIFT SUMMARY SEE PREVIOUS NOTE. NO ACUTE CHANGES, NO SIGN OF INCREASED DEFICITS. VSS, DENIES CP/PRESSURE/SOB. NO OTHER EVENTS, WILL REPORT TO ONCOMING RN.
[2024-03-27 19:58] VITALS: BP 156/58
[2024-03-27] MEDS ORDERED: Nystatin 100,000 Unit/GM Ointment 15 GM TOP SCH (21:00)
[2024-03-27] MEDS ORDERED: Miconazole Nitrate 2% 85 GM PWD TOP SCH (21:00)
[2024-03-27] MEDS ORDERED: Insulin Human Lispro 100 Units/ML 3ML Syringe SC SCH (21:00)
[2024-03-28 03:54] VITALS: BP 143/50
[2024-03-28 05:00] LABS: BASOPHILS ABSOLUTE AUTO 0.05 K/mm3 (0.00-0.23); BASOPHILS PERCENT AUTO 1 % (0-2); EOSINOPHILS ABSOLUTE AUTO 0.28 K/mm3 (0.00-0.68); EOSINOPHILS PERCENT AUTO 5 % (0-6); Hemoglobin 11.6 g/dL (13.5-17.5); IMMATURE GRAN ABSOLUTE AUTO 0.02 K/mm3 (0.00-0.10); IMMATURE GRAN PERCENT AUTO 0 % (0-1); LYMPHOCYTES ABSOLUTE AUTO 1.49 K/mm3 (0.84-5.20); LYMPHOCYTES PERCENT AUTO 24 % (21-46); MONOCYTES PERCENT AUTO 13 % (4-13); Mean Corpuscular HGB 31.5 pg (26.0-34.0); Mean Corpuscular HGB Conc 32.2 g/dL (31.5-36.5); Mean Corpuscular Volume 98 fL (80-100); Mean Platelet Volume 11.7 fL (9.1-12.4); NEUTROPHILS ABSOLUTE AUTO 3.62 K/mm3 (1.96-9.15); NEUTROPHILS PERCENT AUTO 58 % (41-73); Platelet Count 145 K/mm3 (150-400); RDW Coefficient Variation 14.4 % (11.7-14.2); RDW Standard Deviation 51.4 fL (35.1-46.3); Red Blood Cell Count 3.68 M/mm3 (4.30-5.90); White Blood Cell Count 6.26 K/mm3 (4.00-11.30)
[2024-03-28 05:24] LABS: Albumin, Blood 3.2 g/dL (3.4-5.0); Albumin/Globulin Ratio 1.1 (0.8-1.8); Bilirubin, Total 0.6 mg/dL (0.1-1.0); Bun/Creatinine Ratio 17.9 (12.0-20.0); Calcium, Blood 8.3 mg/dL (8.5-10.1); Creatinine, Blood 1.23 mg/dL (0.60-1.20); Globulin, Blood 2.8 g/dL (2.2-4.0); Potassium, Blood 4.2 mmol/L (3.5-5.5)
[2024-03-28 08:03] VITALS: BP 179/73
--- NOTE | 2024-03-28 08:57 | NUR ---
SUMMARY PT SLEPT LATE MORNING,VERB WORRY ABOUT HIS WHO ALSO LIVES AT [facility], BUT HAS DEMENTIA. PT IS HOPING TO GET HOME SOON.
[2024-03-28] MEDS ORDERED: Atorvastatin 40 MG Tab PO SCH (09:00)
[2024-03-28] MEDS ORDERED: Aspirin 81 MG Chew PO SCH (09:00)
[2024-03-28] MEDS ORDERED: Enoxaparin 40 MG/0.4 ML SYR SC SCH (09:00)
--- NOTE | 2024-03-28 11:52 | NUR ---
ASSUMING CARE OF PATIENT FROM MATEO Leos RN.
[2024-03-28] MEDS ORDERED: ASPI81CH PO (16:44)
[2024-03-28] MEDS ORDERED: ATOR40TA PO (16:45)
[2024-03-28] MEDS ORDERED: LEVO750 PO (16:48)
--- NOTE | 2024-03-28 19:14 | NUR ---
WAITING FOR RIDE TO [place], IV DISCONTINUED, DOES NOT NEED HOME OXYGEN, HOME HEALTH TO FOLLOW UP WITH PATIENT, [facility] TO BE 50 MORE MINUTES PER THERE TRANSPORT ORGANIZER. [place], ALERT AND ORIENTED, TRANSFERS IMPROVED, PATIENT IS READY TO GO HOME, RELAYED TO PM RN, CALL LIGHT WITH INREACH
[2024-03-28 20:03] VITALS: BP 188/75
--- NOTE | 2024-03-28 20:34 | NUR ---
SHIFT SUMMARY PT A&OX4 AND ANSWERS QUESTIONS APPROPRIATELY. PT TO BE TRANSFERED. [facility] ARRIVED AROUND 2014 TO TRANSPORT PT. PT AMBULATED W/ WALKER TO THE [facility]. ALL PERSONAL ITEMS W/ PT AND OOR. NO ACUTE EVENTS. ROOM CLEAR OF PERSONAL ITEMS. D/C PAPERWORK W/ PT.
== END 2024-03-28 23:42 ==
LOC: ER 07:15 → MEDS 11:04
PROVIDERS: Nurse Practitioner Family; Student in an Organized Health Care Education/Training Program; ADMIT Hospitalist
DX: I13.0 Hypertensive heart and chronic kidney disease with heart failure and stage 1 through stage 4 chronic kidney disease, or unspecified chronic kidney disease (principal); I50.40 Unspecified combined systolic (congestive) and diastolic (congestive) heart failure; N39.0 Urinary tract infection, site not specified; B95.2 Enterococcus as the cause of diseases classified elsewhere; I27.20 Pulmonary hypertension, unspecified; I07.1 Rheumatic tricuspid insufficiency; D75.839 Thrombocytosis, unspecified; E11.22 Type 2 diabetes mellitus with diabetic chronic kidney disease; N18.31 Chronic kidney disease, stage 3a; E78.5 Hyperlipidemia, unspecified; I25.10 Atherosclerotic heart disease of native coronary artery without angina pectoris; Z79.899 Other long term (current) drug therapy; Z79.4 Long term (current) use of insulin; Z79.82 Long term (current) use of aspirin; Z79.84 Long term (current) use of oral hypoglycemic drugs; Z95.1 Presence of aortocoronary bypass graft
CPT/HCPCS: 36415; 70450; 70496; 70498; 70551; 80053; 81001; 82947; 85025; 87077; 87086; 87186; 92610; 93005; 93010; 93971; 94640; 94664; 94761; 97112; 97162; 97530; 99285-25; A9270; C8929; G0378; J1650; J7030; Q9957; Q9967

== ENCOUNTER → 2024-05-23 | Outpatient (CLI) | payer OTHER ==
[~2024-05-23] MED LIST changes: +ALBU90OI INH; +ALUM-MAG HYDROX30 M1 PO; +ASPI81CH PO; +ATOR40TA PO; +Acetaminophen325 M1 PO; +BISA10S PR; +CIPR500 PO; +COLCHICINE0.6 MG PO; +DULCOLAX400 MG/5 M PO; +FINA5 PO; +GABA100 PO; +IPRAT-ALBUT 0.5-3 ML INH; +LEVO750 PO; +LOPE2C PO; +Loratadine10 MG PO; +NITR.4SL SL; +NOVOLOG FL100 UNIT/3 SC; +Norco 5-325 Ta1 EACH; +POTA10T PO; +Prozac20 MG PO; +SOAANZ20 M1; +TRELEGY ELLIPT1 EACH INH
[2024-05-23 16:16] LABS: Source, Urine Voided
[2024-05-23 18:15] LABS: Appearance, Urine Clear (Clear); Bilirubin, Urine Neg (Neg); Blood, Urine Neg (Neg); Color, Urine Yellow (P-Yellow); Glucose Qualitative, Urine Neg (Neg); Ketones, Urine Neg (Neg); Leukocyte Esterase, Urine 2+ (Neg); Nitrite, Urine Neg (Neg); Protein, Urine 1+ (Neg); Urobilinogen, Urine NORM (Normal)
[2024-05-23 18:32] LABS: Bacteria Mod /hpf; Red Blood Cells, Urine 0-2 /hpf (0-2); Squamous Epithelial Cells Few /hpf (Few)
== END | disposition home or self-care (01) ==
LOC: LAB 16:14 → LAB SHORT 16:14
PROVIDERS: Student in an Organized Health Care Education/Training Program
DX: N39.0 Urinary tract infection, site not specified (principal)
CPT/HCPCS: 81001; 87077; 87086; 87186

== ENCOUNTER 2024-06-17 15:34 | Inpatient (IN) | payer OTHER ==
[~2024-06-17] VITALS: Ht 172.7 cm; Wt 119.9 kg
[2024-06-17 16:13] LABS: BASOPHILS ABSOLUTE AUTO 0.07 K/mm3 (0.00-0.23); BASOPHILS PERCENT AUTO 1 % (0-2); EOSINOPHILS ABSOLUTE AUTO 0.41 K/mm3 (0.00-0.68); EOSINOPHILS PERCENT AUTO 5 % (0-6); Hematocrit 36.6 % (37.0-53.0); Hemoglobin 11.9 g/dL (13.5-17.5); IMMATURE GRAN ABSOLUTE AUTO 0.03 K/mm3 (0.00-0.10); IMMATURE GRAN PERCENT AUTO 0 % (0-1); LYMPHOCYTES ABSOLUTE AUTO 1.35 K/mm3 (0.84-5.20); LYMPHOCYTES PERCENT AUTO 16 % (21-46); MONOCYTES ABSOLUTE AUTO 1.02 K/mm3 (0.16-1.47); MONOCYTES PERCENT AUTO 12 % (4-13); Mean Corpuscular HGB 30.7 pg (26.0-34.0); Mean Corpuscular HGB Conc 32.5 g/dL (31.5-36.5); Mean Corpuscular Volume 95 fL (80-100); NEUTROPHILS ABSOLUTE AUTO 5.65 K/mm3 (1.96-9.15); NEUTROPHILS PERCENT AUTO 66 % (41-73); Platelet Count 147 K/mm3 (150-400); RDW Coefficient Variation 13.6 % (11.7-14.2); RDW Standard Deviation 46.9 fL (35.1-46.3); Red Blood Cell Count 3.87 M/mm3 (4.30-5.90); White Blood Cell Count 8.53 K/mm3 (4.00-11.30)
[2024-06-17 16:37] LABS: Albumin, Blood 3.4 g/dL (3.4-5.0); Albumin/Globulin Ratio 1.1 (0.8-1.8); Bilirubin, Total 0.6 mg/dL (0.1-1.0); Bun/Creatinine Ratio 19.5 (12.0-20.0); Calcium, Blood 8.9 mg/dL (8.5-10.1); Creatinine, Blood 1.28 mg/dL (0.60-1.20); Globulin, Blood 3.1 g/dL (2.2-4.0); Potassium, Blood 4.7 mmol/L (3.5-5.5); Total Protein, Blood 6.5 g/dL (6.4-8.2)
[2024-06-17] MEDS ORDERED: Acetaminophen 500 MG Tab PO ONE (18:25)
[2024-06-17] MEDS ORDERED: FLU VACC TS2024-25(6MOS UP)/PF 45 MCG/0.5 ML SYRINGE IM SCH (21:20)
[2024-06-17] MEDS ORDERED: HYDROcodone 10-APAP 325 TAB PO ONE (21:20)
[2024-06-17] MEDS ORDERED: Ondansetron HCl 2 MG / ML 2ML Vial IV PRN (21:20)
[2024-06-17 21:49] LABS: Source, Urine Foley catheter
[2024-06-17 21:52] LABS: Bilirubin, Urine Neg (Neg); Blood, Urine 1+ (Neg); Glucose Qualitative, Urine 4+ (Neg); Ketones, Urine Neg (Neg); Leukocyte Esterase, Urine Neg (Neg); Nitrite, Urine Neg (Neg); Protein, Urine Neg (Neg); Urobilinogen, Urine NORM (Normal)
[2024-06-17] MEDS ORDERED: Enoxaparin 40 MG/0.4 ML SYR SC SCH (22:00)
[2024-06-17 22:11] LABS: Appearance, Urine Clear (Clear); Color, Urine Pale Yellow (P-Yellow)
[2024-06-17 22:13] LABS: Bacteria Few /hpf; Red Blood Cells, Urine 0-2 /hpf (0-2); Squamous Epithelial Cells Rare /hpf (Few); White Blood Cells, Urine 0-2 /hpf (0-5)
[2024-06-17 22:27] VITALS: BP 166/75
[2024-06-17] MEDS ORDERED: Miconazole Nitrate 2% 85 GM PWD TOP SCH (22:35)
[2024-06-17 23:54] LABS: Influenza A, PCR NEGATIVE (NEGATIVE); Influenza B, PCR NEGATIVE (NEGATIVE); Resp Syncytial Virus, PCR NEGATIVE (NEGATIVE); SARS-Cov-2 (COVID-19) PCR, MMC NEGATIVE (NEGATIVE)
[2024-06-18] MEDS ORDERED: Furosemide 10 MG/ML 4ML Vial IV SCH
[2024-06-18] MEDS ORDERED: FARXIGA10 MG PO (01:07)
[2024-06-18] MEDS ORDERED: SPIR25 PO (01:09)
[2024-06-18 05:14] VITALS: BP 149/59
--- NOTE | 2024-06-18 06:00 | NUR ---
Shift Summary Pt admitted from ED for hypoxia/dyspnea. He came from [facility] where he was also feeling chest pain. Trops and EKG were both negative. Chest X-Ray shows possible pnumonia or pulminary edema. Pt had wet breath sounds and a wet cough upon arrival to this floor. He was given one dose of IV lasix around 0000 which has somewhat improved his wet sounding lungs. He was retaining urine in the ED where they placed a Wu which is currently patent. Pt states he had not voided at all yesterday until the Wu was placed. He is AOx4, very [place], 2 assist to BSC although I didn't see him transfer this shift. He has been sleeping comfortably t/o the night. No chest pain since arriving to the hospital. His tramaine area is very red, Miconazole powder was ordered and applied. Photo documentation in the chart. His L leg was wrapped upon arrival for what he described as 'blistering skin' although when I removed the wrap the skin looked mostly normal. +1 edema BLE. His abdomen is very large and distended, but is soft and not tender. Bowel sounds present.
[2024-06-18 07:08] VITALS: BP 153/58
[2024-06-18 07:14] LABS: BASOPHILS ABSOLUTE AUTO 0.04 K/mm3 (0.00-0.23); BASOPHILS PERCENT AUTO 0 % (0-2); EOSINOPHILS ABSOLUTE AUTO 0.28 K/mm3 (0.00-0.68); EOSINOPHILS PERCENT AUTO 3 % (0-6); Hematocrit 37.1 % (37.0-53.0); Hemoglobin 12.1 g/dL (13.5-17.5); IMMATURE GRAN ABSOLUTE AUTO 0.02 K/mm3 (0.00-0.10); IMMATURE GRAN PERCENT AUTO 0 % (0-1); LYMPHOCYTES ABSOLUTE AUTO 1.16 K/mm3 (0.84-5.20); LYMPHOCYTES PERCENT AUTO 12 % (21-46); MONOCYTES ABSOLUTE AUTO 1.19 K/mm3 (0.16-1.47); MONOCYTES PERCENT AUTO 12 % (4-13); Mean Corpuscular HGB 30.8 pg (26.0-34.0); Mean Corpuscular HGB Conc 32.6 g/dL (31.5-36.5); Mean Corpuscular Volume 94 fL (80-100); Mean Platelet Volume 11.9 fL (9.1-12.4); NEUTROPHILS ABSOLUTE AUTO 7.06 K/mm3 (1.96-9.15); NEUTROPHILS PERCENT AUTO 72 % (41-73); Platelet Count 133 K/mm3 (150-400); RDW Coefficient Variation 13.5 % (11.7-14.2); RDW Standard Deviation 46.5 fL (35.1-46.3); Red Blood Cell Count 3.93 M/mm3 (4.30-5.90); White Blood Cell Count 9.75 K/mm3 (4.00-11.30)
[2024-06-18] MEDS ORDERED: Insulin Human Lispro 100 Units/ML 3ML Syringe SC SCH ×2 (08:00→11:30)
[2024-06-18 08:03] LABS: Albumin, Blood 3.2 g/dL (3.4-5.0); Bilirubin, Total 0.9 mg/dL (0.1-1.0); Bun/Creatinine Ratio 17.4 (12.0-20.0); Calcium, Blood 8.9 mg/dL (8.5-10.1); Creatinine, Blood 1.32 mg/dL (0.60-1.20); Globulin, Blood 3.3 g/dL (2.2-4.0); Potassium, Blood 4.3 mmol/L (3.5-5.5); Total Protein, Blood 6.5 g/dL (6.4-8.2)
[2024-06-18] MEDS ORDERED: Finasteride 5 MG Tab PO SCH (09:00)
[2024-06-18] MEDS ORDERED: Empagliflozin 10 MG TAB PO SCH (09:00)
[2024-06-18] MEDS ORDERED: FLUoxetine HCl 10 MG Cap PO SCH (09:00)
[2024-06-18] MEDS ORDERED: Miconazole Nitrate 2% 85 GM PWD TOP SCH (09:00)
[2024-06-18] MEDS ORDERED: Insulin Glargine-Yfgn 100 Unit/mL 3 ML SYR SC SCH (09:00)
[2024-06-18] MEDS ORDERED: Spironolactone 25 MG Tab PO SCH (09:00)
--- NOTE | 2024-06-18 14:17 | NUR ---
SPOKE TO DR. CULVER RE: HOME O2 EVAL. PT DOES NOT AMBULATE AT BASELINE. PER PT HE TRANSFERS FROM BED TO WHEELCHAIR AT BASELINE AND PEOPLE FROM FACILITY ASSIST WITH TRANSFER. PT O2 WAS REMOVED FOR 10 MINUTES AND PT SATS WERE 93%. NO S/S OF RESPIRATORY DISTRESS. RR E/U. PER DR. CULVER OK TO DC HOME O2 EVAL SINCE PT DOES NOT AMBULATE AND SATS ARE ABOVE 90% AT REST.
[2024-06-18 14:54] VITALS: BP 153/66
[2024-06-18] MEDS ORDERED: FURO20 PO (16:14)
[2024-06-18] MEDS ORDERED: CEPH500 PO (16:14)
--- NOTE | 2024-06-18 16:28 | NUR ---
DISCHARGE NOTE A&OX4. PT HARD OF HEARING. PT ADMITTED DUE TO ACUTE HYPOXIC RESPIRATORY FAILURE. PT IS ON ROOM AIR AT BASELINE. BEGINING OF SHIFT WAS ON 2L O2 VIA N/C. TITRATED OFF O2 TO RA. SATS AT 92%. PT ESCORTED OUT BY TRANSPORT VIA WHEELCHAIR. PT GOING TO [facility]. PT HAD MARKS DUE TO RETENTION. RECIEVED ORDERS TO D/C MARKS. PT TOLERATED REMOVAL. PT REPORTED NO CHEST DISCOMFORT/PAIN. PT WENT WITH ALL PERSONAL BELONGINGS. DISCHARGE INSTRUCTIONS GIVEN TO PT.
--- NOTE | 2024-06-18 16:42 | NUR ---
SPOKE TO GILA AT [facility] TO GIVE REPORT. PER GILA THEY WILL HAVE HIS PRESCRIPTIONS FILLED AND SENT TONIGHT TO FACILITY.
[2024-06-18] MEDS ORDERED: Carvedilol 6.25 MG Tab PO SCH (17:00)
[2024-06-18] MEDS ORDERED: Gabapentin 300 MG Cap PO SCH (21:00)
== END 2024-06-18 16:35 | DRG 291 ==
LOC: ER 15:34 → MEDS 20:53
PROVIDERS: Physician Assistant; ADMIT Internal Medicine
DX: I11.0 Hypertensive heart disease with heart failure (principal); I50.23 Acute on chronic systolic (congestive) heart failure; J96.01 Acute respiratory failure with hypoxia; E66.9 Obesity, unspecified; E11.9 Type 2 diabetes mellitus without complications; I25.10 Atherosclerotic heart disease of native coronary artery without angina pectoris; E78.5 Hyperlipidemia, unspecified; J44.9 Chronic obstructive pulmonary disease, unspecified; D64.9 Anemia, unspecified; H91.90 Unspecified hearing loss, unspecified ear; G89.29 Other chronic pain; M10.9 Gout, unspecified; N40.0 Benign prostatic hyperplasia without lower urinary tract symptoms; G62.9 Polyneuropathy, unspecified; Z68.39 Body mass index [BMI] 39.0-39.9, adult; G47.33 Obstructive sleep apnea (adult) (pediatric); I36.1 Nonrheumatic tricuspid (valve) insufficiency; Z86.73 Personal history of transient ischemic attack (TIA), and cerebral infarction without residual deficits; Z79.899 Other long term (current) drug therapy; Z79.82 Long term (current) use of aspirin; Z79.4 Long term (current) use of insulin; Z88.8 Allergy status to other drugs, medicaments and biological substances; E66.01 Morbid (severe) obesity due to excess calories; F43.23 Adjustment disorder with mixed anxiety and depressed mood; Z95.1 Presence of aortocoronary bypass graft
CPT/HCPCS: 0241U; 36415; 51702; 71045; 80053; 81001; 82947; 83880; 84484; 85025; 93005; 93010; 94760; 99285-25; A9270; G0378; J1650; J1815; J1940

== ENCOUNTER → 2024-07-15 | Outpatient (CLI) | payer OTHER ==
[~2024-07-15] MED LIST changes: +CEPH500 PO; +FARXIGA10 MG PO; +FURO20 PO; +SPIR25 PO
[2024-07-15 15:38] LABS: Source, Urine Voided
[2024-07-15 18:52] LABS: Appearance, Urine Clear (Clear); Bilirubin, Urine Neg (Neg); Blood, Urine 1+ (Neg); Glucose Qualitative, Urine 4+ (Neg); Ketones, Urine Neg (Neg); Leukocyte Esterase, Urine Neg (Neg); Nitrite, Urine Neg (Neg); Protein, Urine Neg (Neg); Specific Gravity, Urine 1.015 (1.003-1.022); Urobilinogen, Urine NORM (Normal)
[2024-07-15 19:34] LABS: Color, Urine Pale Yellow (P-Yellow)
[2024-07-15 20:32] LABS: Red Blood Cells, Urine 0-2 /hpf (0-2); White Blood Cells, Urine 0-2 /hpf (0-5)
[2024-07-15 20:33] LABS: Bacteria Few /hpf; Squamous Epithelial Cells Rare /hpf (Few)
== END ==
LOC: LAB 15:33 → LAB SHORT 15:33
PROVIDERS: Student in an Organized Health Care Education/Training Program
DX: N39.0 Urinary tract infection, site not specified (principal)
CPT/HCPCS: 81001; 87086

== ENCOUNTER 2024-08-04 07:35 | Inpatient (IN) | payer OTHER ==
[~2024-08-04] VITALS: Ht 175.3 cm; Wt 100.4 kg
[2024-08-04 08:11] LABS: BASOPHILS ABSOLUTE AUTO 0.07 K/mm3 (0.00-0.23); BASOPHILS PERCENT AUTO 1 % (0-2); EOSINOPHILS ABSOLUTE AUTO 0.31 K/mm3 (0.00-0.68); EOSINOPHILS PERCENT AUTO 2 % (0-6); Hematocrit 38.3 % (37.0-53.0); Hemoglobin 12.4 g/dL (13.5-17.5); IMMATURE GRAN ABSOLUTE AUTO 0.06 K/mm3 (0.00-0.10); IMMATURE GRAN PERCENT AUTO 0 % (0-1); LYMPHOCYTES ABSOLUTE AUTO 1.15 K/mm3 (0.84-5.20); LYMPHOCYTES PERCENT AUTO 8 % (21-46); MONOCYTES ABSOLUTE AUTO 1.43 K/mm3 (0.16-1.47); MONOCYTES PERCENT AUTO 10 % (4-13); Mean Corpuscular HGB 31.3 pg (26.0-34.0); Mean Corpuscular HGB Conc 32.4 g/dL (31.5-36.5); Mean Corpuscular Volume 97 fL (80-100); Mean Platelet Volume 10.9 fL (9.1-12.4); NEUTROPHILS ABSOLUTE AUTO 10.67 K/mm3 (1.96-9.15); NEUTROPHILS PERCENT AUTO 78 % (41-73); Platelet Count 154 K/mm3 (150-400); RDW Coefficient Variation 14.6 % (11.7-14.2); RDW Standard Deviation 51.4 fL (35.1-46.3); Red Blood Cell Count 3.96 M/mm3 (4.30-5.90); White Blood Cell Count 13.69 K/mm3 (4.00-11.30)
[2024-08-04] MEDS ORDERED: ASPIR 8181 M1 PO (08:16)
[2024-08-04] MEDS ORDERED: ALBU90OI INH (08:17)
[2024-08-04] MEDS ORDERED: Acetaminophen650 M1 PO (08:17)
[2024-08-04] MEDS ORDERED: ALUM-MAG HYDROX30 M1 PO (08:18)
[2024-08-04] MEDS ORDERED: BISA10S PR (08:19)
[2024-08-04] MEDS ORDERED: LISI20 PO (08:22)
[2024-08-04] MEDS ORDERED: NITR.4SL SL (08:23)
[2024-08-04] MEDS ORDERED: LOPE2C PO (08:23)
[2024-08-04] MEDS ORDERED: LORA10ER PO (08:23)
[2024-08-04] MEDS ORDERED: TORSE20 PO (08:24)
[2024-08-04] MEDS ORDERED: DULCOLAX400 MG/5 M PO (08:24)
[2024-08-04] MEDS ORDERED: TRELEGY ELLIPT1 EACH INH (08:25)
[2024-08-04 08:37] LABS: Albumin, Blood 3.3 g/dL (3.4-5.0); Bilirubin, Total 0.7 mg/dL (0.1-1.0); Bun/Creatinine Ratio 20.8 (12.0-20.0); Calcium, Blood 8.7 mg/dL (8.5-10.1); Creatinine, Blood 1.54 mg/dL (0.60-1.20); Globulin, Blood 3.4 g/dL (2.2-4.0); Potassium, Blood 5.3 mmol/L (3.5-5.5); Total Protein, Blood 6.7 g/dL (6.4-8.2)
[2024-08-04 09:04] LABS: Influenza A, PCR NEGATIVE (NEGATIVE); Influenza B, PCR NEGATIVE (NEGATIVE); Resp Syncytial Virus, PCR NEGATIVE (NEGATIVE); SARS-Cov-2 (COVID-19) PCR, MMC NEGATIVE (NEGATIVE)
[2024-08-04] MEDS ORDERED: CefTRIAXone Sodium 1,000 MG in NS 50 ML IV ONE (10:55)
[2024-08-04] MEDS ORDERED: Aspirin 325 MG Tab PO ONE (11:10)
[2024-08-04] MEDS ORDERED: Acetaminophen 325 MG TABLET PO ONE (11:20)
[2024-08-04] MEDS ORDERED: Furosemide 10 MG/ML 4ML Vial IV ONE (11:50)
[2024-08-04] MEDS ORDERED: Magnesium Hydroxide Conc 10 ML UDC PO PRN (11:50)
[2024-08-04] MEDS ORDERED: [UNRECOGNIZED DRUG - OTHER] IM ONE (11:50)
[2024-08-04] MEDS ORDERED: FLU VACC TS2024-25(6MOS UP)/PF 45 MCG/0.5 ML SYRINGE IM SCH (11:50)
[2024-08-04] MEDS ORDERED: Bisacodyl 10 MG Supp PR PRN (11:50)
[2024-08-04] MEDS ORDERED: Ondansetron HCl 2 MG / ML 2ML Vial IV PRN (11:50)
[2024-08-04] MEDS ORDERED: Acetaminophen 325 MG TABLET PO PRN (11:55)
[2024-08-04] MEDS ORDERED: Labetalol HCL 5 MG/ML 4ML Injection (Single Dose) IV ONE (12:00)
[2024-08-04 12:21] LABS: PCO2 Arterial 36.7 mmHg (35-45); pH Blood Arterial 7.34 (7.35-7.45)
[2024-08-04] MEDS ORDERED: LORazepam 2 MG/ML 1ML Injection IV ONE (12:35)
[2024-08-04] MEDS ORDERED: Furosemide 10 MG/ML 4ML Vial IV SCH ×2 (13:00→18:00)
[2024-08-04] MEDS ORDERED: Piperacillin/Tazobactam Sod 3.375 GM in NS 100 ML IV SCH ×2 (13:00→18:00)
[2024-08-04] MEDS ORDERED: Vancomycin HCL 2,000 MG in NS 500 ML IV ONE (13:30)
[2024-08-04 13:41] VITALS: BP 110/55
[2024-08-04 14:00] LABS: Adenovirus Not Detected (NOT DETECT); Bordetella pertussis Not Detected (NOT DETECT); Chlamydophila pneumoniae Not Detected (NOT DETECT); Coronavirus 229E Not Detected (NOT DETECT); Coronavirus HKU1 Not Detected (NOT DETECT); Coronavirus NL63 Not Detected (NOT DETECT); Coronavirus OC43 Not Detected (NOT DETECT); Human Metapneumovirus Not Detected (NOT DETECT); Human Rhinovirus/Enterovirus Not Detected (NOT DETECT); Influenza A/2009-H1 Not Detected (NOT DETECT); Influenza A/H1 Not Detected (NOT DETECT); Influenza A/H3 Not Detected (NOT DETECT); Influenza B Not Detected (NOT DETECT); Mycoplasma pneumoniae Not Detected (NOT DETECT); Parainfluenza Virus 1 Not Detected (NOT DETECT); Parainfluenza Virus 2 Not Detected (NOT DETECT); Parainfluenza Virus 3 Not Detected (NOT DETECT); Parainfluenza Virus 4 Not Detected (NOT DETECT); Respiratory Syncytial Virus Not Detected (NOT DETECT); SARS-Cov-2 (COVID-19), BioFire Not Detected (NOT DETECT)
[2024-08-04] MEDS ORDERED: Miconazole Nitrate 2% 85 GM PWD TOP SCH ×2 (14:31→21:00)
[2024-08-04] MEDS ORDERED: HYDACE10B PO (14:38)
[2024-08-04] MEDS ORDERED: NYSTOP15 GM TOP (14:42)
[2024-08-04] MEDS ORDERED: IPRAT-ALBUT 0.5-3 ML INH (14:44)
[2024-08-04] MEDS ORDERED: Acetaminophen 650 MG Supp PR PRN (14:45)
[2024-08-04] MEDS ORDERED: Albuterol 2.5 MG/3 ML VIAL INH PRN (15:10)
[2024-08-04] MEDS ORDERED: Ipratropium/Albuterol SulF 2.5-0.5MG/3 ML Amp INH SCH (15:10)
[2024-08-04 15:14] LABS: Source, Urine Foley catheter
[2024-08-04 15:20] LABS: Appearance, Urine Clear (Clear); Bilirubin, Urine Neg (Neg); Blood, Urine Neg (Neg); Glucose Qualitative, Urine 4+ (Neg); Ketones, Urine Neg (Neg); Leukocyte Esterase, Urine Neg (Neg); Nitrite, Urine Neg (Neg); Protein, Urine 2+ (Neg); Specific Gravity, Urine 1.015 (1.003-1.022); Urobilinogen, Urine NORM (Normal)
[2024-08-04 15:22] LABS: Color, Urine Pale Yellow (P-Yellow)
[2024-08-04 15:27] LABS: Bacteria Not Seen /hpf; Hyaline Casts 0-2 /lpf (0-2); Red Blood Cells, Urine Not Seen /hpf (0-2); Squamous Epithelial Cells Not Seen /hpf (Few); White Blood Cells, Urine 0-2 /hpf (0-5)
--- NOTE | 2024-08-04 15:30 | NUR ---
arrival to pcu patient arrived to pcu approx 1330. patient transfered from the emergency room to pcu via gurney and slide over to pcu bed. patient tolerated well. patient on bipap 14/8 at 40% with spo2 >90%, and patient tolerating well. respirations 18-24. blood pressure stable. tele sinus with a left bundle branch block. temperature 101.1. rectal tylenol given for temperature. sosa catheter placed on unit due to exocriation in tramaine area/pannus/scrotum for healing and to keep dry. the area with exorication had a yeast smell, powder has been order and applied. pictures are in the chart, and md isabel aware of wounds on right butt cheek and exoriations. patient is alert and oriented x4. neuro is intact. patient is hard of hearing and difficult to understand due to bipap in place. lung sounds throughout tight and coarse and lower sounds dim tight and coarse. denies pain, chest pain/pressure or shortness of breath at this time. see admit shift assessment for further detials. home med rec complete from the list provided from maria ines renee. plan of care is up to date at this time.
--- NOTE | 2024-08-04 16:05 | NUR ---
15 beat run of v tach this rn spoke with md isabel in person at bedside about patients 15 run beat of v tach at 1600 that this rn was notifed by teletypesetter operator at 1558. no change in patients current condition. no new orders at this time. plan to continue to monitor.
[2024-08-04] MEDS ORDERED: Carvedilol 6.25 MG Tab PO SCH (17:00)
--- NOTE | 2024-08-04 18:13 | NUR ---
shift summary patient neuro remains intact. vitals remain stable. bedside swallow done and patient passed. patient ate dinner without issues on 4l nc. respiratory rate in 20s. no acute changes.plan remains up to date.
[2024-08-04 19:22] LABS: Anti-Xa UFH, PHA Monitoring <0.10 IU/mL; International Normalized Ratio 1.12; Prothrombin Time Results 11.9 Sec (9.7-11.5)
[2024-08-04] MEDS ORDERED: Heparin Sodium,Porcine/0.5 NS 500 ML IV SCH (19:30)
[2024-08-04 19:40] VITALS: BP 106/44
[2024-08-04] MEDS ORDERED: Insulin Glargine-Yfgn 100 Unit/mL 3 ML SYR SC SCH (21:00)
[2024-08-04] MEDS ORDERED: Gabapentin 300 MG Cap PO SCH (21:00)
[2024-08-04 23:36] VITALS: BP 129/59
[2024-08-05 02:11] LABS: Hemoglobin 12.4 g/dL (13.5-17.5); Mean Corpuscular HGB 31.2 pg (26.0-34.0); Mean Corpuscular HGB Conc 33.5 g/dL (31.5-36.5); Mean Corpuscular Volume 93 fL (80-100); Mean Platelet Volume 11.6 fL (9.1-12.4); Platelet Count 149 K/mm3 (150-400); RDW Coefficient Variation 14.6 % (11.7-14.2); RDW Standard Deviation 50.4 fL (35.1-46.3); Red Blood Cell Count 3.98 M/mm3 (4.30-5.90)
[2024-08-05 02:28] LABS: Albumin, Blood 2.9 g/dL (3.4-5.0); Albumin/Globulin Ratio 0.9 (0.8-1.8); Bilirubin, Total 1.1 mg/dL (0.1-1.0); Bun/Creatinine Ratio 21.2 (12.0-20.0); Calcium, Blood 8.8 mg/dL (8.5-10.1); Creatinine, Blood 1.98 mg/dL (0.60-1.20); Globulin, Blood 3.4 g/dL (2.2-4.0); Potassium, Blood 4.9 mmol/L (3.5-5.5); Total Protein, Blood 6.3 g/dL (6.4-8.2)
[2024-08-05 02:37] LABS: BAND PERCENT MAN 28 % (0-8); BASOPHILS PERCENT MAN 0 % (0-2); EOSINOPHILS PERCENT MAN 0 % (0-6); LYMPHOCYTES ABSOLUTE MAN 1.75 K/mm3 (0.84-5.20); LYMPHOCYTES PERCENT MAN 9 % (21-46); METAMYELOCYTE ABSOLUTE MAN 0.19 K/mm3 (0.00-0.00); METAMYELOCYTE PERCENT MAN 1 % (0-0); MONOCYTES ABSOLUTE MAN 1.36 K/mm3 (0.16-1.47); MONOCYTES PERCENT MAN 7 % (4-13); NEUTROPHILS ABSOLUTE MAN 16.18 K/mm3 (1.96-9.15); SEG NEUTROPHILS PERCENT MAN 55 % (41-73); TOTAL CELLS COUNTED 100
[2024-08-05] MEDS ORDERED: Clarify Drug Order XX ONE (03:10)
[2024-08-05] MEDS ORDERED: Aspirin 325 MG Tab PO STA (06:34)
[2024-08-05] MEDS ORDERED: Clopidogrel Bisulfate 300 MG Cap PO ONE (06:40)
[2024-08-05 07:21] VITALS: BP 121/51
[2024-08-05 08:26] VITALS: BP 115/46
[2024-08-05] MEDS ORDERED: Dose Adjust by Pharmacy XX STA (08:48)
[2024-08-05] MEDS ORDERED: Lisinopril 20 MG Tab PO SCH (09:00)
[2024-08-05] MEDS ORDERED: Furosemide 10 MG/ML 4ML Vial IV SCH (09:00)
[2024-08-05] MEDS ORDERED: Spironolactone 25 MG Tab PO SCH (09:00)
[2024-08-05] MEDS ORDERED: Enoxaparin 40 MG/0.4 ML SYR SC SCH (09:00)
[2024-08-05] MEDS ORDERED: Aspirin 81 MG TabEC PO SCH (09:00)
[2024-08-05] MEDS ORDERED: FLUoxetine HCL 20 MG CAP PO SCH (09:00)
[2024-08-05 11:42] VITALS: BP 111/48
[2024-08-05] MEDS ORDERED: Vancomycin HCL 1,250 MG in NS 250 ML IV SCH (14:00)
[2024-08-05] MEDS ORDERED: Vancomycin HCL 1,000 MG in NS 250 ML IV SCH (14:00)
--- NOTE | 2024-08-05 15:02 | NUR ---
SHIFT SUMMARY ALERT AND ORIENTED TO SELF, PERSON, AND PLACE, OBEYS COMMANDS AND ABLE TO MAKE NEEDS KNOWN, [place], GETTING UP 2-3 PERSON WITH FWW AND GAIT BELT TO STAND PIVOT TO CHAIR, Q2T. CONTINUOUS SPO2, SPO2 GREATER THAN 90% ON 2L O2 VIA NC, BIPAP SETTING ARE 14/8/40% WHILE SLEEPING, UPPER LOBES SOUND TIGHT WITH CRACKLES AND INSPIRATORY WHEEZE, LOWER LOBES SOUND DIMMINISHED WITH CRACKLES. CONTINUOUS CARDIAC MONITORING, HR 70 S, DENIES CHEST P/P T/O THIS SHIFT. HAVING LIQUID BM THIS SHIFT, SEVERE ABD DISTENTION, PT DENIES PAIN OR TENDERNESS WITH PALPATION . MARKS CATH SECURE/PATENT/DRAINING TO GRAVITY, URINE YELLOW IN COLOR. SMALL OPEN WOUND ON BUTTOX RENESS TO GROIN. DR. GANDARA ROUNDED ON PT THIS AM. SPEECH THERAPY ROUNDED ON PT THIS AM, NEW ORDERS PLACED. EFRomero SIMPSON NOTIFIED OF PT. DR. PATEL ROUNDED ON PT THIS AFTERNOON. ANA Salazar RN, TO TAKE OVER PRIMARY CARE.
[2024-08-05 15:49] VITALS: BP 116/45
[2024-08-05] MEDS ORDERED: Insulin Regular 100 UNIT/ML 10ML Vial SC SCH (16:30)
[2024-08-05 16:51] VITALS: BP 122/49
--- NOTE | 2024-08-05 18:43 | NUR ---
Shift Summary Pt remains up in recliner for majority of shift. Vss. No other acute changes noted. Will continue to monitor.
[2024-08-05 20:08] VITALS: BP 122/46
[2024-08-06] VITALS (8 sets, daily range): BP systolic 107–145; BP diastolic 47–74
[2024-08-06 04:23] LABS: BASOPHILS ABSOLUTE AUTO 0.06 K/mm3 (0.00-0.23); BASOPHILS PERCENT AUTO 0 % (0-2); EOSINOPHILS ABSOLUTE AUTO 0.22 K/mm3 (0.00-0.68); EOSINOPHILS PERCENT AUTO 2 % (0-6); Hematocrit 38.2 % (37.0-53.0); Hemoglobin 12.3 g/dL (13.5-17.5); IMMATURE GRAN ABSOLUTE AUTO 0.13 K/mm3 (0.00-0.10); IMMATURE GRAN PERCENT AUTO 1 % (0-1); LYMPHOCYTES ABSOLUTE AUTO 1.39 K/mm3 (0.84-5.20); LYMPHOCYTES PERCENT AUTO 10 % (21-46); MONOCYTES PERCENT AUTO 11 % (4-13); Mean Corpuscular HGB Conc 32.2 g/dL (31.5-36.5); Mean Corpuscular Volume 96 fL (80-100); Mean Platelet Volume 11.7 fL (9.1-12.4); NEUTROPHILS PERCENT AUTO 77 % (41-73); NRBC ABSOLUTE 0.02 K/mm3 (0.00-0.02); NRBC Auto 0.1 /100 WBC (0.0-0.2); Platelet Count 138 K/mm3 (150-400); RDW Coefficient Variation 14.7 % (11.7-14.2); RDW Standard Deviation 52.5 fL (35.1-46.3); Red Blood Cell Count 3.97 M/mm3 (4.30-5.90)
[2024-08-06 04:47] LABS: Bun/Creatinine Ratio 23.6 (12.0-20.0); Calcium, Blood 8.6 mg/dL (8.5-10.1); Creatinine, Blood 2.25 mg/dL (0.60-1.20)
[2024-08-06] MEDS ORDERED: Dose Adjust by Pharmacy XX STA ×2 (04:58→11:51)
--- NOTE | 2024-08-06 06:49 | NUR ---
NOC SHIFT SUMMARY PT ORIENTED X4, ABLE TO MAKE NEEDS KNOWN. SR/BBB/PVCS ON TELEMETRY. ON 2-4L VIA NC. NO ACUTE CHANGES OVERNIGHT. TOLERATED TURNS WELL. MARKS TO DD WITH CLEAR YELLOW OUTPUT. MEPILEX PLACED TO COCCYX. BM X1. CALL LIGHT WITHIN REACH. BED ALARM IN PLACE.
[2024-08-06] MEDS ORDERED: Atorvastatin 40 MG Tab PO SCH (09:00)
[2024-08-06] MEDS ORDERED: Aspirin 81 MG TabEC PO SCH (09:00)
[2024-08-06] MEDS ORDERED: Insulin Regular 100 UNIT/ML 10ML Vial SC SCH (16:30)
--- NOTE | 2024-08-06 18:16 | NUR ---
SHIFT SUMMARY ALERT AND ORIENTED TO SELF, PERSON, AND PLACE, OBEYS COMMANDS AND ABLE TO MAKE NEEDS KNOWN, [place], GETTING UP 2-3 PERSON WITH FWW AND GAIT BELT TO STAND PIVOT TO CHAIR, Q2T. CONTINUOUS SPO2, SPO2 GREATER THAN 90% ON 2L O2 VIA NC T/O MOST OF SHIFT, TITRATED DOWN TO 1L O2 VIA NC, BIPAP SETTING ARE 14/8/40% WHILE SLEEPING, UPPER LOBES SOUND TIGHT WITH CRACKLES, LOWER LOBES SOUND DIMMINISHED WITH CRACKLES, LUNGS SOUNDED IMPROVED FROM PERVIOUS SHIFT. HR 70 S, DENIES CHEST P/P T/O THIS SHIFT. HAVING LIQUID BM THIS SHIFT, SEVERE ABD DISTENTION, PT DENIES PAIN OR TENDERNESS WITH PALPATION, PT REQUIRING INSULIN COVERAGE THIS SHIFT . MARKS CATH SECURE/PATENT/DRAINING TO GRAVITY, URINE PALE YELLOW IN COLOR. SMALL OPEN WOUND ON BUTTOX RENESS TO GROIN. DR. GANDARA ROUNDED ON PT THIS AM. PHYSICAL THERAPY WORKED WITH PT THIS MORNING. DR. PATEL ROUNDED ON PT THIS MORNING, NEW ORDERS PLACED.
[2024-08-06] MEDS ORDERED: Lactobacil 2-S.Thermo-Bifido 1 1 Cap PO SCH (21:00)
[2024-08-06] MEDS ORDERED: Insulin Glargine-Yfgn 100 Unit/mL 3 ML SYR SC SCH (21:00)
[2024-08-07] VITALS (7 sets, daily range): BP systolic 123–147; BP diastolic 54–78
--- NOTE | 2024-08-07 00:51 | NUR ---
PULLED OFF CPAP. VOICED DIDNT WANT IT ABCK ON. O2 PER NC APPLIED. HOB ELEVATED. 02 SATS 92%. CALL LIGHT IN REACH. ASYMPTOMATIC
--- NOTE | 2024-08-07 03:16 | NUR ---
3RD MATE SUMMARY VSS. HAD BM EARLIER IN THE SHIFT WITH 2 PERSON ASSIST TO AND FROM COMMODE. WAS ON CPAP AFTER ASSISTED TO BED WITH HOB ELEVATED. SATS WERE IHE 90'S, BUT AFTER MULTIPLE ASSISTS AND TURNS IN BED, REQUESTED CPAP OFF AND 02 PER NC TO REPLACE IT. INTERMITTENT RESTING IN BED, THEN A FEW MINUTES AGO, REQUESTED TO GET BACK IN RECLINER CHAIR. RECEIVING IV ANTIBIOTICS, PAIN MED ANAYA X 1 - SEE NOV FOR DETAILS. ABLE TO REPOSITION IN BED WITH STAFF ASSSIST, CALL LIGHT IN REACH, RAILS WERE UP X 2 IN BED, AND BED IN LOW POSITION FOR SAFETY. NOW BACK IN CHAIR, FEET UP AND CALL LIGHT IN REACH. DENIED CHEST PAIN ALL SHIFT. WILL CONT TO MONITOR
[2024-08-07 03:58] LABS: BASOPHILS ABSOLUTE AUTO 0.06 K/mm3 (0.00-0.23); BASOPHILS PERCENT AUTO 1 % (0-2); EOSINOPHILS ABSOLUTE AUTO 0.48 K/mm3 (0.00-0.68); EOSINOPHILS PERCENT AUTO 4 % (0-6); Hematocrit 35.1 % (37.0-53.0); Hemoglobin 11.6 g/dL (13.5-17.5); IMMATURE GRAN PERCENT AUTO 1 % (0-1); LYMPHOCYTES ABSOLUTE AUTO 1.36 K/mm3 (0.84-5.20); LYMPHOCYTES PERCENT AUTO 12 % (21-46); MONOCYTES ABSOLUTE AUTO 1.08 K/mm3 (0.16-1.47); MONOCYTES PERCENT AUTO 10 % (4-13); Mean Corpuscular HGB 30.6 pg (26.0-34.0); Mean Corpuscular Volume 93 fL (80-100); Mean Platelet Volume 11.2 fL (9.1-12.4); NEUTROPHILS ABSOLUTE AUTO 8.12 K/mm3 (1.96-9.15); NEUTROPHILS PERCENT AUTO 73 % (41-73); Platelet Count 151 K/mm3 (150-400); RDW Coefficient Variation 14.4 % (11.7-14.2); RDW Standard Deviation 48.8 fL (35.1-46.3); Red Blood Cell Count 3.79 M/mm3 (4.30-5.90)
[2024-08-07 04:15] LABS: Bun/Creatinine Ratio 27.7 (12.0-20.0); Calcium, Blood 8.8 mg/dL (8.5-10.1); Creatinine, Blood 2.06 mg/dL (0.60-1.20)
--- NOTE | 2024-08-07 17:23 | NUR ---
SHIFT SUMMARY PT IS ALERT AND ORIENTED TO SELF, PLACE, PERSON AND AT TIMES SITUATION. HE IS [place]. BP AND HR HAVE BEEN STABLE. SPO2 IS MAINTAINED >95% VIA 2L NC WHICH IS PT'S BASELINE O2 DEMAND. HE HAS DENIED FEELINGS OF CHEST PAIN/PRESSURE, LIGHTHEADEDNESS AND DIZZINESS AND SOB. LLE NOTED TO HAVE NEW FORMED BLISTERS AND REDNESS, LLE IS SLIGHTLY SWOLLEN COMPARED TO RLE. DR. NORRIS ORDERED A VENOUS DUPLEX WHICH WAS COMPLETED. HE HAS BEEN A 2 PERSON ASSIST W/ FWW TO COMMODE/CHAIR, HE APPEARS WEAK. THIS RN CHANGED MEPILEX DRESSING OVER WOUND ON COCCYX AREA AND ALSO CLEANED WOUND AREA. HE IS CURRENTLY IN BED. MARKS CATHETER IS IN PLACE AND DRAINING TO GRAVITY. CALL LIGHT IS W/IN REACH.
[2024-08-07] MEDS ORDERED: Heparin Sodium,Porcine 5,000 UNIT/0.5 ML SDV SC SCH (21:00)
--- NOTE | 2024-08-07 22:20 | NUR ---
ASSUMPTION OF CARE ASSUMED CARE OF PATIENT AT 1900, BEDSIDE SHIFT REPORT RECEIVED FROM NIRAV RN. PT SITTING IN RECLINER, ALERT AND ORIENTED X4. PT ANSWERS QUESTIONS APPROPRIATELY, FOLLOWS DIRECTION WHEN PROMPTED AND IS ABLE TO MAKE HIS NEEDS KNOWN. PT MOVES EXTREMITIES EQUALLY BILATERALLY, DECREASED MOVEMENT IN BLE. PT STATES THAT HIS FEET ARE NUMB WHICH MAKES IT DIFFICULT FOR HIM TO WALK. PT AMBULATES SHORT DISTANCES, 2 PERSON ASSIST WITH GAIT BELT AND FWW. PT LEFT LOWER LEG IS RED WITH SMALL BLISTERS NOTED, REDNESS OUTLINED ON DAYSHIFT, NO CHANGE. HR 60-70'S SINUS WITH BBB AND PROLONGED QTC. PT DENIES CP/PRESSURE, MAP >65. PT ON 2LPM VIA NC, OXYGEN SATURATION >92%. ABDOMEN SOFT, BOWEL TONES ACTIVE THROUGHOUT. PT DENIES N/V. PT AMBULATED TO BEDSIDE COMMODE TO VOID, MARKS IN PLACE PATENT DRIANING YELLOW URINE TO GRAVITY. PIV IN PLACE TO RFA SL. PT HAS REDNESS NOTED TO RAMO AREA AND PANNUS, MEDICATED PER EMAR. 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 CALL LIGHT WITHIN REACH, CARE CONTINUES.
--- NOTE | 2024-08-08 00:21 | NUR ---
RT FOREARM IV LEAKING. NEW IV STARTED LEFT FOREARM. RT IV D/C'D CATH INTACT. NO REDNESS, MILD SWELLING AT INSERTION SITE.
[2024-08-08 03:45] VITALS: BP 150/62
[2024-08-08 04:02] LABS: BASOPHILS ABSOLUTE AUTO 0.06 K/mm3 (0.00-0.23); BASOPHILS PERCENT AUTO 1 % (0-2); EOSINOPHILS ABSOLUTE AUTO 0.48 K/mm3 (0.00-0.68); EOSINOPHILS PERCENT AUTO 5 % (0-6); Hemoglobin 11.5 g/dL (13.5-17.5); IMMATURE GRAN ABSOLUTE AUTO 0.06 K/mm3 (0.00-0.10); IMMATURE GRAN PERCENT AUTO 1 % (0-1); LYMPHOCYTES ABSOLUTE AUTO 1.54 K/mm3 (0.84-5.20); LYMPHOCYTES PERCENT AUTO 16 % (21-46); MONOCYTES ABSOLUTE AUTO 1.12 K/mm3 (0.16-1.47); MONOCYTES PERCENT AUTO 12 % (4-13); Mean Corpuscular HGB Conc 32.9 g/dL (31.5-36.5); Mean Corpuscular Volume 94 fL (80-100); Mean Platelet Volume 11.2 fL (9.1-12.4); NEUTROPHILS ABSOLUTE AUTO 6.47 K/mm3 (1.96-9.15); NEUTROPHILS PERCENT AUTO 67 % (41-73); Platelet Count 144 K/mm3 (150-400); RDW Coefficient Variation 14.1 % (11.7-14.2); RDW Standard Deviation 48.6 fL (35.1-46.3); Red Blood Cell Count 3.71 M/mm3 (4.30-5.90); White Blood Cell Count 9.73 K/mm3 (4.00-11.30)
[2024-08-08 04:22] LABS: Calcium, Blood 8.9 mg/dL (8.5-10.1); Creatinine, Blood 1.69 mg/dL (0.60-1.20); Potassium, Blood 4.3 mmol/L (3.5-5.5)
--- NOTE | 2024-08-08 05:43 | NUR ---
SHIFT SUMMARY NO ACUTE CHANGES THIS SHIFT, PT CONTINUES TO REST IN RECLINER, SLEEPING BUT AROUSABLE. PT STATES THAT HE USUALLY SLEEPS IN A RECLINER AT HOME AND PREFERS THE RECLINER WHILE HERE IN THE HOSPITAL. PT ORIENTED X4, ANSWERS QUESTIONS APPROPRIATELY, FOLLOWS DIRECTION WHEN PROMTPED AND IS ABLE TO MAKE HIS NEEDS KNOWN. PT MOVES EXTREMITIES EQUALLY BILATERALLY, PT STATES THAT HIS FEET ARE NUMB AND IT MAKES WALKING DIFFICULT. PT COMPLAINING OF PAIN IN HIS LOWER EXTRMEITIES, MEDICATED PER EMAR. PT TWO PERSON ASSIST WITH GAIT BELT AND FWW. HR 70'S SINUS WITH BBB AND PROLONGED QT. PT DENIES CP/PRESSURE. ABDOMEN ROUND, NONTENDER, BOWEL TONES ACTIVE THROUGHOUT. MARKS IN PLACE PATENT DRAINING YELLOW URINE TO GRAVITY. PIV IN PLACE TO LFA SL. CALL LIGHT WITHIN REACH, CARE CONTINUES.
[2024-08-08 07:28] VITALS: BP 127/99
[2024-08-08] MEDS ORDERED: Heparin Sodium 5000 Units/ML 1ML MDV SC SCH (09:00)
[2024-08-08] MEDS ORDERED: Insulin Glargine-Yfgn 100 Unit/mL 3 ML SYR SC SCH (09:00)
[2024-08-08 11:36] VITALS: BP 147/56
--- NOTE | 2024-08-08 13:22 | NUR ---
Spoke with pt and his son today. The patient has made it clear he wants to return to [facility] to be with his . He v/u that he would be returning on hospice, and is agreeable to this. He states he does not want to return to the hospital, and if new health issues arise, he wishes for symptom management only. Spoke with [facility] RN Violeta. She states concern due to pt being "a very big rocky" who has previously been able to get around in his scooter. According to today's PT treatment, the patient is "close to his baseline," and recommendation is for home health. However, given the patient's wish not to pursue further treatment, hospice is more appropriate. BONIFACIO Mcdaniel plans to reasses the patient tomorrow afternoon. CM to follow up on hospice availability, as pt and son do not have agency preference.
[2024-08-08 15:31] VITALS: BP 141/56
--- NOTE | 2024-08-08 17:58 | NUR ---
SHIFT SUMMARY PATIENT IS A+OX4, ABLE TO MAKE NEEDS KNOWN. PATIENT MOVES ALL EXTERMITIES, PEFERS TO BE UP IN A CHAIR, WELL SLEEP IN IT. 2 PERSON MAX ASSIST W/ FWW AND GAIT BELT. USING 2 LITER OF OXYGEN VIA NC. SATURATING ABOVE 90% THROUGHTOUT SHIFT. VSS. PATIENT HAS MARKS CATH IN PLACE, DRAINING TO GRAVITIY. PATIENT LIVES AT [facility] WITH AND WISHES TO RETURN BACK THERE SOON POSSIBLE, THERE WERE DISCUSTIONS ABOUT HIM RETURNING BACK TOMORROW ON HOSPICE. REPORT GIVEN TO MEDICAL FLOOR RN, PATIENT TRANSFERED VIA WHEELCHAIR.
[2024-08-08 18:08] VITALS: BP 144/57
--- NOTE | 2024-08-08 18:41 | NUR ---
TRANSFER/SHIFT SUMMARY. PATIENT TRANSFERED FROM U9 TO ROOM 328. PATIENT TRANPORTED BY WHEELCHAIR-PATIENT HAS IV ABX RUNNING UPON TRANSFER. PATIENT IS A&OX4. PATIENT HAS MARKS CATHETER IN PLACE. PER REPORT PATIENT TO DISCHARGE BACK TO [facility] TOMORROW ON HOSPICE. PATIENTS SKIN IS EXCORIATED IN GROIN/PANNUS/COCCYX/PENIS. PATIENT PREFERS TO SLEEP IN A RECLINER OVER A BED AND REPORTS HE SLEEPS IN A RECLINER AT HOME. PATIENT HAS MARKS THAT IS PATENT AND DRAINING TO GRAVITY. BED IS LOCKED IN THE LOWEST POSITION WITH CALL LIGHT IN REACH. CARE IS ONGOING.
[2024-08-08 19:41] VITALS: BP 148/58
[2024-08-08] MEDS ORDERED: HyDROXyzine HCl 25 MG Tab PO ONE (22:35)
--- NOTE | 2024-08-08 23:24 | NUR ---
REQUESTED ANXIETY MED, VOICED FEELING ANXIOUS AFTER BEING TOLD HE WAS "GOING TO ", BY THE MD WHEN IN PCU. NURSE DISCUSSED PT CONCERNS, NOTIFIED MD AND MD ORDERED ONE TIME DOSE OF ATARAX - SEE NOV. PT SMILING WHEN NURSE LEFT ROOM. IV ANIBIOTICS INFUSING. CALL LIGHT IN REACH. VSS
[2024-08-09 03:20] VITALS: BP 161/67
--- NOTE | 2024-08-09 03:47 | NUR ---
LIFE ASSURANCE REPRESENTATIVE SUMMARY BP ELEVATED, OTHERWISE VSS. ON O2 PER NC PT EASILY GETS SOB WITH EXERTION. REQUESTED AND REMAINS IN RECLINER CHAIR FOR SLEEP HE FELT MORE COMFORTABLE TO DO SO. KENDRICK TREVINO. MED TELE SR IN THE 70'S. ACCUCHECKS IN THE 300'S, INSULIN COVERAGE GIVEN, ON ANTIBIOTICS - SEE NOV FOR DETAILS. VOICED SOME ANXIETY AT HS DUE TO VOICED DISCUSSION WITH MD WHILE IN PCU RE VOICED TERMINAL PROGNOSIS. REQUESTED AND RECEIVED ANXIETY MED PER MD ORDERS. HAS BEEN RESTING QUIETLY WITH OCCASIONAL INTERRUPTIONS, SUCH PULLING OFF TELE, O2 NC, ETC. VOICED FEELING OK WHEN ASKED IN THE MIDDLE OF THE NIGHT. CALL LIGHT IN REACH, FEET ELEVATED TO PREVENT FALL OUT OF CHAIR. WILL CONTINUE TO MONITOR
[2024-08-09 07:27] VITALS: BP 114/93
[2024-08-09] MEDS ORDERED: NS 250 ML IV PRN (08:45)
[2024-08-09] MEDS ORDERED: VISBIOME 112.51 EACH PO (09:38)
[2024-08-09] MEDS ORDERED: AMOCLA875 PO (09:39)
--- NOTE | 2024-08-09 12:56 | NUR ---
DISCHARGE NOTE PATIENT A/OX2, ABLE TO MAKE NEEDS KNOWN. PATIENT ON 2 LPM OXYGEN VIA NASAL CANNULA AND MARKS CATHETER IN PLACE. STAGE 2 PRESSURE ULCER TO SACRUM, MEPILEX PLACED THIS MORNING AFTER PATIENT PROVIDED WITH BED BATH. GROIN AND SCROTUM EXCORIATED, POWDER APPLIED PER NOV. TYLENOL ADMINISTERED FOR GENERALIZED PAIN. PATIENT 2 PERSON TRANSFER WITH GAIT BELT AND WALKER. PLAN TO DISCHARGE TODAY [facility] 1315 TO [facility], REPORT GIVEN TO EDA PARTIALLY UNTIL SHE TRANSFERRED THE PHONE CALL TO "Revivio" AND PHONE CONTINUED TO RING WITHOUT AN ANSWER. AWAITING TRANSPORTATION. NO OTHER CONCERNS AT THIS TIME. PIV AND TELEMETRY REMOVED PRIOR TO DISCHARGE.
--- NOTE | 2024-08-09 14:10 | NUR ---
TRANSPORTATION ARRIVED FOR PATIENT. PATIENT ASSISTED TO WHEELCHAIR WITH TWO STAFF MEMBERS LEFT WITH [facility] AND STAFF FROM [facility]POR[facility] WILL RETURN. PATIENT LEFT WITH ALL BELONGINGS, NO OTHER CONCERNS.
== END 2024-08-09 14:00 | disposition hospice, home (50) | DRG 280 ==
LOC: ER 07:35 → MEDS 11:47 → PCU 11:47 → MEDS 08-08 17:55
PROVIDERS: Emergency Medicine; Family Medicine; Pharmacist; ADMIT Family Medicine
PROC: 5A09457 Assistance with Respiratory Ventilation, 24-96 Consecutive Hours, Continuous Positive Airway Pressure (ICD-10-PCS; principal; 2024-08-05)
PROC: 0T9B70Z Drainage of Bladder with Drainage Device, Via Natural or Artificial Opening (ICD-10-PCS; 2024-08-07)
DX: I21.4 Non-ST elevation (NSTEMI) myocardial infarction (principal); A41.9 Sepsis, unspecified organism; J96.01 Acute respiratory failure with hypoxia; I50.23 Acute on chronic systolic (congestive) heart failure; R65.20 Severe sepsis without septic shock; I16.1 Hypertensive emergency; N17.9 Acute kidney failure, unspecified; I13.0 Hypertensive heart and chronic kidney disease with heart failure and stage 1 through stage 4 chronic kidney disease, or unspecified chronic kidney disease; Z66 Do not resuscitate; J44.9 Chronic obstructive pulmonary disease, unspecified; I25.10 Atherosclerotic heart disease of native coronary artery without angina pectoris; E78.5 Hyperlipidemia, unspecified; N40.0 Benign prostatic hyperplasia without lower urinary tract symptoms; E66.01 Morbid (severe) obesity due to excess calories; M10.9 Gout, unspecified; F03.90 Unspecified dementia, unspecified severity, without behavioral disturbance, psychotic disturbance, mood disturbance, and anxiety; F80.89 Other developmental disorders of speech and language; D69.6 Thrombocytopenia, unspecified; E11.22 Type 2 diabetes mellitus with diabetic chronic kidney disease; N18.30 Chronic kidney disease, stage 3 unspecified; D63.1 Anemia in chronic kidney disease; H91.90 Unspecified hearing loss, unspecified ear; Z88.8 Allergy status to other drugs, medicaments and biological substances; Z86.73 Personal history of transient ischemic attack (TIA), and cerebral infarction without residual deficits; Z85.528 Personal history of other malignant neoplasm of kidney; Z91.041 Radiographic dye allergy status; Z79.891 Long term (current) use of opiate analgesic; Z79.82 Long term (current) use of aspirin; Z79.899 Other long term (current) drug therapy; Z79.85 Long-term (current) use of injectable non-insulin antidiabetic drugs; Z79.811 Long term (current) use of aromatase inhibitors; Z95.1 Presence of aortocoronary bypass graft; Z79.01 Long term (current) use of anticoagulants; Z68.38 Body mass index [BMI] 38.0-38.9, adult; Z79.4 Long term (current) use of insulin; Z28.89 Immunization not carried out for other reason; Z99.3 Dependence on wheelchair
CPT/HCPCS: 0202U; 0241U; 36415; 36600; 51702; 71045; 80048; 80053; 81001; 82803; 82947; 83605; 83880; 84145; 84484; 85025; 85520; 85610; 85730; 87040; 90732; 92526; 92610; 93005; 93010; 93970; 94640; 94660; 94664; 94760; 94762; 96365; 97110; 97163; 97530; 99285-25; A9270; C8929; J0696; J1644; J1815; J1940; J2060; J2543; J3370; J7040; Q9957